=== PATIENT | male | born 1980 | race Caucasian/White ===

== ENCOUNTER 2016-09-27 23:28 | Inpatient (IN) | payer SELFPAY ==
[~2016-09-27] VITALS: Ht 175.3 cm; Wt 79.6 kg
[2016-09-27 23:56] LABS: BASOPHILS % (AUTO) 0.4 % (0.0-2.0); EOSINOPHILS % (AUTO) 1.8 % (1.0-6.0); HEMATOCRIT 45.4 % (41-53); HEMOGLOBIN 15.5 g/dL (13.5-17.5); LYMPHOCYTES # (AUTO) 1.9 K/uL (1.0-4.8); LYMPHOCYTES % (AUTO) 28.3 % (22.0-44.0); MEAN CORPUSCULAR HEMOGLOBIN 31.6 pg (26.0-34.0); MEAN CORPUSCULAR HGB CONC 34.1 G/dL (31.0-37.0); MEAN CORPUSCULAR VOLUME 93 fL (80-100); MONOCYTES # (AUTO) 0.4 K/uL (0.1-1.0); MONOCYTES % (AUTO) 6.2 % (2.0-9.0); NEUTROPHILS # (AUTO) 4.3 K/uL (1.8-7.7); NEUTROPHILS % (AUTO) 63.3 % (40.0-70.0); PLATELET COUNT (AUTO) 312 K/uL (150-450); RED CELL DISTRIBUTION WIDTH 14.4 % (11.5-14.5); WHITE BLOOD COUNT (AUTO) 6.9 K/uL (4.5-11.0)
[2016-09-28 00:05] LABS: ANION GAP 13 mmol/L (8-16); CARBON DIOXIDE 23 mmol/L (22-29); CHLORIDE 107 mmol/L (98-107); CREATININE 1.25 mg/dL (0.60-1.30); GLOMERULAR FILTR. RATE CALC > 60 mL/min (>60); POTASSIUM 3.9 mmol/L (3.5-5.1); SODIUM SERUM 143 mmol/L (136-145); UREA NITROGEN, BLOOD 11 mg/dL (7-18)
[2016-09-28 00:12] LABS: ALANINE AMINOTRANSFERASE 36 U/L (12-78); ALBUMIN 3.9 g/dL (3.4-5.0); ASPARTATE AMINOTRANSFERASE 63 U/L (15-37); BILIRUBIN,TOTAL 0.3 mg/dL (0.1-1.0); TOTAL PROTEIN, SERUM 7.5 g/dL (6.4-8.2)
[2016-09-28] MEDS ORDERED: HALOPERIDOL 5 MG TABLET PO PRN (04:30)
[2016-09-28] MEDS ORDERED: LORazepam 2 MG TABLET PO PRN (04:30)
[2016-09-28] MEDS ORDERED: ZOLPIDEM TARTRATE 10 MG TABLET PO PRN (04:30)
[2016-09-28 08:00] VITALS: BP 147/89
[2016-09-28 08:13] VITALS: BP 147/89
[2016-09-28 08:30] VITALS: BP 113/76
[2016-09-28 10:30] VITALS: BP 116/78
[2016-09-28] MEDS ORDERED: ACETAMINOPHEN 325 MG TABLET PO PRN (13:15)
[2016-09-28] MEDS ORDERED: IBUPROFEN 600 MG TABLET PO PRN (13:15)
[2016-09-28 16:24] VITALS: BP 109/67
== END 2016-09-28 18:45 | disposition home or self-care (01) | DRG 885 ==
LOC: EMS 23:30 → B2S 09-28 04:00
PROVIDERS: ADMIT Psychiatry & Neurology Child & Adolescent Psychiatry; ATTEND Psychiatry & Neurology Child & Adolescent Psychiatry
DX: F39 Unspecified mood [affective] disorder (principal); R45.851 Suicidal ideations; R45.850 Homicidal ideations; F10.129 Alcohol abuse with intoxication, unspecified; F12.90 Cannabis use, unspecified, uncomplicated; F29 Unspecified psychosis not due to a substance or known physiological condition; R79.89 Other specified abnormal findings of blood chemistry; R51 Headache; R45.87 Impulsiveness; Z59.0 Homelessness; Z72.89 Other problems related to lifestyle; Z71.41 Alcohol abuse counseling and surveillance of alcoholic; Y90.6 Blood alcohol level of 120-199 mg/100 ml
CPT/HCPCS: 99285; G0480

== ENCOUNTER 2018-05-11 19:39 | Inpatient (IN) | payer MEDICAID ==
[~2018-05-11] VITALS: Ht 175.3 cm; Wt 74.6 kg
[2018-05-11] MEDS ORDERED: DiphenhydrAMINE HCL 50 MG/ML VIAL ONE (20:54)
[2018-05-11] MEDS ORDERED: HALOPERIDOL LACTATE 5 MG/ML VIAL ONE (20:54)
[2018-05-11] MEDS ORDERED: LORazepam 2 MG/ML VIAL ONE (20:54)
[2018-05-11] MEDS ORDERED: DiphenhydrAMINE HCL 50 MG/ML VIAL IM ONE (21:00)
[2018-05-11] MEDS ORDERED: HALOPERIDOL LACTATE 5 MG/ML VIAL IM ONE (21:00)
[2018-05-11] MEDS ORDERED: LORazepam 2 MG/ML VIAL IM ONE (21:00)
[2018-05-11 22:32] LABS: BASOPHILS % (AUTO) 0.2 % (0.0-2.0); EOSINOPHILS % (AUTO) 0.8 % (1.0-6.0); HEMOGLOBIN 14.2 g/dL (13.5-17.5); LYMPHOCYTES # (AUTO) 1.4 K/uL (1.0-4.8); LYMPHOCYTES % (AUTO) 15.5 % (22.0-44.0); MEAN CORPUSCULAR HEMOGLOBIN 31.9 pg (26.0-34.0); MEAN CORPUSCULAR HGB CONC 34.7 G/dL (31.0-37.0); MEAN CORPUSCULAR VOLUME 92 fL (80-100); MONOCYTES # (AUTO) 0.7 K/uL (0.1-1.0); MONOCYTES % (AUTO) 7.8 % (2.0-9.0); NEUTROPHILS % (AUTO) 75.7 % (40.0-70.0); PLATELET COUNT (AUTO) 295 K/uL (150-450); RED BLOOD CELL COUNT(AUTO) 4.45 MIL/uL (4.50-5.90); RED CELL DISTRIBUTION WIDTH 13.8 % (11.5-14.5)
[2018-05-11 22:42] LABS: ANION GAP 13 mmol/L (8-16); CALCIUM, TOTAL 8.5 mg/dL (8.8-10.5); CARBON DIOXIDE 21 mmol/L (22-29); CHLORIDE 107 mmol/L (98-107); CREATININE 0.99 mg/dL (0.60-1.30); GLOMERULAR FILTR. RATE CALC > 60 mL/min (>60); GLUCOSE,RANDOM 95 mg/dL (70-110); POTASSIUM 3.5 mmol/L (3.5-5.1); SODIUM SERUM 141 mmol/L (136-145); UREA NITROGEN, BLOOD 12 mg/dL (7-18)
[2018-05-11 22:55] LABS: ALANINE AMINOTRANSFERASE 43 U/L (12-78); ALBUMIN 3.5 g/dL (3.4-5.0); ALKALINE PHOSPHATASE 61 U/L (46-116); ASPARTATE AMINOTRANSFERASE 53 U/L (15-37); BILIRUBIN,TOTAL 0.3 mg/dL (0.1-1.0); TOTAL PROTEIN, SERUM 6.9 g/dL (6.4-8.2)
[2018-05-11 23:08] LABS: AMPHET/METH SCREEN,URINE NEGATIVE (NEGATIVE); BARBITURATE SCREEN, URINE NEGATIVE (NEGATIVE); BENZODIAZEPINES SCREEN,URINE POSITIVE (NEGATIVE); CANNABINOID SCREEN,URINE NEGATIVE (NEGATIVE); COCAINE SCREEN,URINE NEGATIVE (NEGATIVE); METHADONE SCREEN, URINE NEGATIVE (NEGATIVE); OPIATE SCREEN,URINE NEGATIVE (NEGATIVE); PHENCYCLIDINE SCREEN,URINE NEGATIVE (NEGATIVE)
[2018-05-12] VITALS (7 sets, daily range): BP systolic 95–133; BP diastolic 59–72
[2018-05-12] MEDS ORDERED: LIDOCAINE 2%/EPI 1:200,000/PF 20 ML VIAL INJ ONE (00:15)
[2018-05-12] MEDS ORDERED: SODIUM CHLORIDE 0.9% 2,000 ML IV ONE (00:15)
[2018-05-12] MEDS ORDERED: ZOLPIDEM TARTRATE 10 MG TABLET PO PRN (04:00)
[2018-05-12] MEDS ORDERED: LORazepam 1 MG TABLET PO PRN (04:00)
[2018-05-12] MEDS: HALOPERIDOL 5 MG TABLET PO PRN (09:29)
[2018-05-12] MEDS ORDERED: ACETAMINOPHEN 325 MG TABLET PO PRN (09:45)
[2018-05-12] MEDS ORDERED: LORazepam 2 MG TABLET PO PRN (17:00)
[2018-05-12] MEDS: IBUPROFEN 600 MG TABLET PO PRN (17:10)
[2018-05-12] MEDS: OLANZapine 10 MG TABLET PO SCH (20:57)
[2018-05-13] MEDS ORDERED: LORazepam 2 MG TABLET PO PRN (07:00)
[2018-05-13 07:18] LABS: CHOL/HDL RATIO 2.3 (4.2-7.3)
[2018-05-13] MEDS: LORazepam 2 MG TABLET PO SCH ×4 (08:47→21:00)
[2018-05-13] MEDS: IBUPROFEN 600 MG TABLET PO PRN (08:50)
[2018-05-13] MEDS: OLANZapine 10 MG TABLET PO SCH (21:00)
[2018-05-14] MEDS: LORazepam 2 MG TABLET PO SCH ×4 (09:00→21:14)
[2018-05-14 09:36] VITALS: BP 116/62
[2018-05-14 09:37] VITALS: BP 116/62
[2018-05-14 13:00] VITALS: BP 116/80
[2018-05-14] MEDS: HALOPERIDOL 5 MG TABLET PO PRN (13:02)
[2018-05-14] MEDS: OLANZapine 10 MG TABLET PO SCH (21:14)
[2018-05-15] MEDS ORDERED: LORazepam 1 MG TABLET PO PRN (07:00)
[2018-05-15] MEDS: LORazepam 1 MG TABLET PO SCH ×4 (08:39→20:31)
[2018-05-15 08:44] VITALS: BP 105/69
[2018-05-15 09:38] VITALS: BP 105/69
[2018-05-15] MEDS ORDERED: BACITRACIN 28.4 GM OINTMENT TP PRN (10:15)
[2018-05-15 17:46] VITALS: BP 120/75
[2018-05-15 17:47] VITALS: BP 120/75
[2018-05-15] MEDS: OLANZapine 10 MG TABLET PO SCH (20:31)
[2018-05-16] MEDS ORDERED: LORazepam 1 MG TABLET PO PRN (07:00)
[2018-05-16 08:15] VITALS: BP 121/69
[2018-05-16] MEDS: OLANZapine 10 MG TABLET PO SCH (21:22)
[2018-05-16 21:29] VITALS: BP 120/68
[2018-05-17 05:01] VITALS: BP 111/63
[2018-05-17 09:05] VITALS: BP 106/66
[2018-05-17 17:45] VITALS: BP 113/64
[2018-05-17] MEDS: OLANZapine 10 MG TABLET PO SCH (20:27)
[2018-05-18 08:23] VITALS: BP 113/66
[2018-05-18 16:41] VITALS: BP 109/73
[2018-05-18] MEDS: OLANZapine 10 MG TABLET PO SCH (20:33)
[2018-05-18] MEDS: HALOPERIDOL 5 MG TABLET PO PRN (20:33)
[2018-05-19] MEDS ORDERED: OLAN10TA3 PO (15:19)
== END 2018-05-19 15:50 | disposition home or self-care (01) | DRG 750 ==
LOC: EMS 19:40 → 3EC 05-12 03:54 → B3A 05-16 19:30
PROVIDERS: ADMIT Psychiatry & Neurology Psychiatry; ATTEND Psychiatry & Neurology Psychiatry
PROC: 0HQGXZZ Repair Left Hand Skin, External Approach (ICD-10-PCS; principal; 2018-05-12)
DX: F25.0 Schizoaffective disorder, bipolar type (principal); Z78.1 Physical restraint status; F10.10 Alcohol abuse, uncomplicated; F13.10 Sedative, hypnotic or anxiolytic abuse, uncomplicated; Y90.9 Presence of alcohol in blood, level not specified; S51.812A Laceration without foreign body of left forearm, initial encounter; S61.512A Laceration without foreign body of left wrist, initial encounter; X78.1XXA Intentional self-harm by knife, initial encounter; Z87.891 Personal history of nicotine dependence; Z91.5 Personal history of self-harm; Y90.6 Blood alcohol level of 120-199 mg/100 ml; M54.2 Cervicalgia
CPT/HCPCS: 12002; 51701; 96372; G0480; J1200; J1630; J2060

== ENCOUNTER 2018-10-09 15:28 | Inpatient (IN) | payer MEDICAID ==
[~2018-10-09] VITALS: Ht 172.7 cm; Wt 78.9 kg
[~2018-10-09 15:28] MED LIST: OLAN10TA3 PO
[2018-10-09 17:34] VITALS: BP 122/65
[2018-10-09] MEDS ORDERED: MAG HYDROX/AL HYDROX/SIMETH ES 30 ML SUSPENSION UDCUP PO PRN (18:00)
[2018-10-09] MEDS ORDERED: ALBUTEROL SULFATE HFA 90 MCG/PUFF 8 GM INHALER IH PRN (18:00)
[2018-10-09] MEDS ORDERED: ONDANSETRON HCL 4 MG TABLET PO PRN (18:00)
[2018-10-09] MEDS ORDERED: IBUPROFEN 400 MG TABLET PO PRN (18:00)
[2018-10-09] MEDS ORDERED: ACETAMINOPHEN 325 MG TABLET PO PRN (18:00)
[2018-10-09] MEDS ORDERED: CloNIDine HCL 0.1 MG TABLET PO PRN (18:00)
[2018-10-09] MEDS ORDERED: NICOTINE 14 MG/24 HOUR PATCH TD PRN (18:00)
[2018-10-09] MEDS ORDERED: MAGNESIUM HYDROXIDE SUSPENSION 30 ML UDCUP PO PRN (18:00)
[2018-10-09] MEDS ORDERED: PETROLATUM,WHITE 28 GM JELLY TP PRN (18:00)
[2018-10-09] MEDS ORDERED: DOCUSATE SODIUM 100 MG CAPSULE PO PRN (18:00)
[2018-10-09] MEDS ORDERED: GuaiFENesin/D-METHORPHAN [SUGAR-FREE] 200-20MG/10 ML SYRUP UDCUP PO PRN (18:00)
[2018-10-09] MEDS ORDERED: LOPERAMIDE HCL 2 MG CAPSULE PO PRN (18:00)
[2018-10-09] MEDS: OLANZapine 10 MG TABLET PO SCH (21:21)
[2018-10-09] MEDS: LORazepam 2 MG TABLET PO PRN (21:21)
[2018-10-09] MEDS: HALOPERIDOL 5 MG TABLET PO PRN (21:21)
[2018-10-09] MEDS: ZOLPIDEM TARTRATE 10 MG TABLET PO PRN (21:53)
[2018-10-10 07:55] LABS: BASOPHILS % (AUTO) 0.7 % (0.0-2.0); HEMOGLOBIN 14.5 g/dL (13.5-17.5); LYMPHOCYTES # (AUTO) 2.3 K/uL (1.0-4.8); LYMPHOCYTES % (AUTO) 39.1 % (22.0-44.0); MEAN CORPUSCULAR HEMOGLOBIN 31.7 pg (26.0-34.0); MEAN CORPUSCULAR HGB CONC 33.9 G/dL (31.0-37.0); MEAN CORPUSCULAR VOLUME 94 fL (80-100); MONOCYTES # (AUTO) 0.6 K/uL (0.1-1.0); MONOCYTES % (AUTO) 10.3 % (2.0-9.0); NEUTROPHILS # (AUTO) 2.7 K/uL (1.8-7.7); NEUTROPHILS % (AUTO) 45.9 % (40.0-70.0); PLATELET COUNT (AUTO) 288 K/uL (150-450); RED BLOOD CELL COUNT(AUTO) 4.58 MIL/uL (4.50-5.90); RED CELL DISTRIBUTION WIDTH 14.2 % (11.5-14.5)
[2018-10-10 08:03] VITALS: BP 101/58
[2018-10-10 09:05] LABS: ALBUMIN 3.4 g/dL (3.4-5.0); BILIRUBIN,TOTAL 0.3 mg/dL (0.1-1.0); CHOL/HDL RATIO 2.3 (4.2-7.3); CREATININE 1.34 mg/dL (0.60-1.30); POTASSIUM 3.8 mmol/L (3.5-5.1); THYROID STIMULATING HORMONE 2.15 uIU/mL (0.36-3.74); TOTAL PROTEIN, SERUM 6.4 g/dL (6.4-8.2)
[2018-10-10] MEDS: LORazepam 2 MG TABLET PO PRN ×2 (12:58→18:32)
[2018-10-10 16:00] VITALS: BP 110/66
[2018-10-10] MEDS: OLANZapine 10 MG TABLET PO SCH (20:39)
[2018-10-11 06:50] VITALS: BP 101/59
[2018-10-11 08:34] VITALS: BP 109/70
[2018-10-11] MEDS ORDERED: SERTRALINE HCL 50 MG TABLET PO SCH (09:00)
[2018-10-11] MEDS: HALOPERIDOL 5 MG TABLET PO PRN ×2 (09:17→18:18)
[2018-10-11] MEDS: LORazepam 2 MG TABLET PO PRN ×2 (09:17→18:18)
[2018-10-11 16:43] VITALS: BP 109/67
[2018-10-11] MEDS: OLANZapine 10 MG TABLET PO SCH (20:50)
[2018-10-11] MEDS: ZOLPIDEM TARTRATE 10 MG TABLET PO PRN (20:51)
[2018-10-12] MEDS: HALOPERIDOL 5 MG TABLET PO PRN ×3 (03:49→15:40)
[2018-10-12] MEDS: LORazepam 2 MG TABLET PO PRN ×4 (03:49→20:45)
[2018-10-12 03:50] VITALS: BP 133/88
[2018-10-12 08:47] VITALS: BP 113/61
[2018-10-12] MEDS: SERTRALINE HCL 50 MG TABLET PO SCH (08:54)
[2018-10-12 08:58] VITALS: BP 113/61
[2018-10-12 16:00] VITALS: BP 108/67
[2018-10-12] MEDS: ZOLPIDEM TARTRATE 10 MG TABLET PO PRN (20:45)
[2018-10-12] MEDS: OLANZapine 10 MG TABLET PO SCH (20:45)
[2018-10-13 06:27] VITALS: BP 115/72
[2018-10-13 08:11] VITALS: BP 111/70
[2018-10-13] MEDS: SERTRALINE HCL 50 MG TABLET PO SCH (09:14)
[2018-10-13 16:00] VITALS: BP 122/73
[2018-10-13] MEDS: HALOPERIDOL 5 MG TABLET PO PRN (16:53)
[2018-10-13] MEDS: OLANZapine 10 MG TABLET PO SCH (20:43)
[2018-10-13] MEDS: LORazepam 0.5 MG TABLET PO PRN (22:04)
[2018-10-14 08:10] VITALS: BP 112/65
[2018-10-14] MEDS: SERTRALINE HCL 50 MG TABLET PO SCH (10:12)
[2018-10-14] MEDS: LORazepam 0.5 MG TABLET PO PRN ×2 (13:41→20:09)
[2018-10-14 16:00] VITALS: BP 112/69
[2018-10-14] MEDS: OLANZapine 10 MG TABLET PO SCH (20:09)
[2018-10-14] MEDS ORDERED: OMEPRAZOLE 20 MG CAPSULE PO SCH (21:00)
[2018-10-14] MEDS: ZOLPIDEM TARTRATE 10 MG TABLET PO PRN (23:39)
[2018-10-15] VITALS: BP 119/80
[2018-10-15] MEDS: HALOPERIDOL 5 MG TABLET PO PRN (00:10)
[2018-10-15 08:30] VITALS: BP 100/72
[2018-10-15] MEDS: SERTRALINE HCL 50 MG TABLET PO SCH (09:07)
[2018-10-15] MEDS ORDERED: OLAN10TA3 PO (11:55)
[2018-10-15] MEDS ORDERED: SERT100T12 PO (11:56)
== END 2018-10-15 13:25 | disposition home or self-care (01) | DRG 750 ==
LOC: B3A 17:33
PROVIDERS: ADMIT Psychiatry & Neurology Psychiatry; ATTEND Psychiatry & Neurology Psychiatry
DX: F25.0 Schizoaffective disorder, bipolar type (principal); I95.9 Hypotension, unspecified; I50.9 Heart failure, unspecified; Z91.19 Patient's noncompliance with other medical treatment and regimen; F10.10 Alcohol abuse, uncomplicated; K21.9 Gastro-esophageal reflux disease without esophagitis; F19.10 Other psychoactive substance abuse, uncomplicated; F41.9 Anxiety disorder, unspecified; Z71.41 Alcohol abuse counseling and surveillance of alcoholic; Z71.51 Drug abuse counseling and surveillance of drug abuser; Z79.899 Other long term (current) drug therapy; Z90.49 Acquired absence of other specified parts of digestive tract
CPT/HCPCS: 83036; 84436; 84439; 84443

== ENCOUNTER 2019-08-25 12:12 | Inpatient (IN) | payer MEDICAID ==
[~2019-08-25] VITALS: Ht 175.3 cm; Wt 81.6 kg
[~2019-08-25 12:12] MED LIST changes: +SERT100T12 PO
[2019-08-25 16:01] VITALS: BP 120/70
[2019-08-25 17:28] VITALS: BP 111/72
[2019-08-25] MEDS: HALOPERIDOL 5 MG TABLET PO PRN (18:17)
[2019-08-25] MEDS: LORazepam 2 MG TABLET PO PRN (18:17)
[2019-08-25] MEDS: ZOLPIDEM TARTRATE 10 MG TABLET PO PRN (20:55)
[2019-08-26 03:55] VITALS: BP 114/70
[2019-08-26 07:53] LABS: BASOPHILS % (AUTO) 0.4 % (0.0-2.0); EOSINOPHILS % (AUTO) 3.9 % (1.0-6.0); HEMATOCRIT 42.6 % (41-53); HEMOGLOBIN 14.3 g/dL (13.5-17.5); LYMPHOCYTES % (AUTO) 26.7 % (22.0-44.0); MEAN CORPUSCULAR HEMOGLOBIN 31.7 pg (26.0-34.0); MEAN CORPUSCULAR HGB CONC 33.6 G/dL (31.0-37.0); MEAN CORPUSCULAR VOLUME 94 fL (80-100); MONOCYTES # (AUTO) 0.7 K/uL (0.1-1.0); MONOCYTES % (AUTO) 9.3 % (2.0-9.0); NEUTROPHILS # (AUTO) 4.6 K/uL (1.8-7.7); NEUTROPHILS % (AUTO) 59.7 % (40.0-70.0); PLATELET COUNT (AUTO) 310 K/uL (150-450); RED BLOOD CELL COUNT(AUTO) 4.52 MIL/uL (4.50-5.90); RED CELL DISTRIBUTION WIDTH 14.1 % (11.5-14.5)
[2019-08-26 08:08] LABS: ALANINE AMINOTRANSFERASE 37 U/L (12-78); ALBUMIN 3.2 g/dL (3.4-5.0); ALKALINE PHOSPHATASE 71 U/L (46-116); ANION GAP 8 mmol/L (8-16); ASPARTATE AMINOTRANSFERASE 23 U/L (15-37); BILIRUBIN,TOTAL 0.2 mg/dL (0.1-1.0); CALCIUM, TOTAL 8.5 mg/dL (8.8-10.5); CARBON DIOXIDE 26 mmol/L (22-29); CHLORIDE 108 mmol/L (98-107); CHOL/HDL RATIO 3.8 (4.2-7.3); CHOLESTEROL 152 mg/dL (131-200); CREATININE 0.95 mg/dL (0.60-1.30); GLOMERULAR FILTR. RATE CALC > 60 mL/min (>60); GLUCOSE,RANDOM 88 mg/dL (70-110); HDL CHOLESTEROL 40 mg/dL (40-60); LDL CHOL (CALC.) 85 mg/dL (0-130); SODIUM SERUM 142 mmol/L (136-145); TOTAL PROTEIN, SERUM 6.9 g/dL (6.4-8.2); TRIGLYCERIDES 136 mg/dL (15-150); UREA NITROGEN, BLOOD 18 mg/dL (7-18)
[2019-08-26] MEDS ORDERED: GuaiFENesin/D-METHORPHAN [SUGAR-FREE] 200-20MG/10 ML SYRUP UDCUP PO PRN (08:15)
[2019-08-26] MEDS ORDERED: LOPERAMIDE HCL 2 MG CAPSULE PO PRN (08:15)
[2019-08-26] MEDS ORDERED: IBUPROFEN 400 MG TABLET PO PRN (08:15)
[2019-08-26] MEDS ORDERED: PETROLATUM,WHITE 28 GM JELLY TP PRN (08:15)
[2019-08-26] MEDS ORDERED: NICOTINE 14 MG/24 HOUR PATCH TD PRN (08:15)
[2019-08-26] MEDS ORDERED: ACETAMINOPHEN 325 MG TABLET PO PRN (08:15)
[2019-08-26] MEDS ORDERED: ONDANSETRON HCL 4 MG TABLET PO PRN (08:15)
[2019-08-26] MEDS ORDERED: ALBUTEROL SULFATE HFA 90 MCG/PUFF 8 GM INHALER IH PRN (08:15)
[2019-08-26] MEDS ORDERED: MAG HYDROX/AL HYDROX/SIMETH ES 30 ML SUSPENSION UDCUP PO PRN (08:15)
[2019-08-26] MEDS ORDERED: MAGNESIUM HYDROXIDE SUSPENSION 30 ML UDCUP PO PRN (08:15)
[2019-08-26] MEDS ORDERED: DOCUSATE SODIUM 100 MG CAPSULE PO PRN (08:15)
[2019-08-26] MEDS ORDERED: CloNIDine HCL 0.1 MG TABLET PO PRN (08:15)
[2019-08-26 08:26] VITALS: BP 114/63
[2019-08-26] MEDS: HALOPERIDOL 5 MG TABLET PO PRN (10:04)
[2019-08-26] MEDS: LORazepam 2 MG TABLET PO PRN (14:10)
[2019-08-26] MEDS: SERTRALINE HCL 100 MG TABLET PO SCH (15:58)
[2019-08-26 16:31] VITALS: BP 108/68
[2019-08-26] MEDS: OLANZapine 10 MG TABLET PO SCH (20:11)
[2019-08-27 00:05] VITALS: BP 100/74
[2019-08-27 08:13] VITALS: BP 102/62
[2019-08-27 08:22] LABS: BASOPHILS % (AUTO) 0.5 % (0.0-2.0); HEMATOCRIT 43.4 % (41-53); HEMOGLOBIN 14.9 g/dL (13.5-17.5); LYMPHOCYTES # (AUTO) 1.8 K/uL (1.0-4.8); LYMPHOCYTES % (AUTO) 28.9 % (22.0-44.0); MEAN CORPUSCULAR HEMOGLOBIN 32.2 pg (26.0-34.0); MEAN CORPUSCULAR HGB CONC 34.2 G/dL (31.0-37.0); MEAN CORPUSCULAR VOLUME 94 fL (80-100); MONOCYTES # (AUTO) 0.5 K/uL (0.1-1.0); MONOCYTES % (AUTO) 8.3 % (2.0-9.0); NEUTROPHILS # (AUTO) 3.7 K/uL (1.8-7.7); NEUTROPHILS % (AUTO) 57.3 % (40.0-70.0); PLATELET COUNT (AUTO) 308 K/uL (150-450); RED BLOOD CELL COUNT(AUTO) 4.62 MIL/uL (4.50-5.90)
[2019-08-27] MEDS: SERTRALINE HCL 100 MG TABLET PO SCH (08:33)
[2019-08-27] MEDS: LORazepam 2 MG TABLET PO PRN ×2 (09:45→17:51)
[2019-08-27] MEDS: HALOPERIDOL 5 MG TABLET PO PRN (17:07)
[2019-08-27 17:35] VITALS: BP 109/72
[2019-08-27] MEDS: OLANZapine 10 MG TABLET PO SCH (20:26)
[2019-08-27] MEDS: ZOLPIDEM TARTRATE 10 MG TABLET PO PRN (21:15)
[2019-08-28 00:26] VITALS: BP 129/84
[2019-08-28 08:24] VITALS: BP 121/71
[2019-08-28] MEDS: SERTRALINE HCL 100 MG TABLET PO SCH (09:37)
[2019-08-28] MEDS: HALOPERIDOL 5 MG TABLET PO PRN ×2 (12:26→16:57)
[2019-08-28 18:06] VITALS: BP 105/74
[2019-08-28] MEDS: OLANZapine 10 MG TABLET PO SCH (20:33)
[2019-08-29 00:30] VITALS: BP 125/78
[2019-08-29] MEDS: SERTRALINE HCL 100 MG TABLET PO SCH (08:28)
[2019-08-29 08:52] VITALS: BP 111/68
[2019-08-29 16:18] VITALS: BP 110/68
[2019-08-29] MEDS: OLANZapine 10 MG TABLET PO SCH (20:16)
[2019-08-29] MEDS: ZOLPIDEM TARTRATE 10 MG TABLET PO PRN (22:48)
[2019-08-30 00:54] VITALS: BP 118/67
[2019-08-30] MEDS: SERTRALINE HCL 100 MG TABLET PO SCH (08:26)
[2019-08-30 08:56] VITALS: BP 117/73
[2019-08-30 16:17] VITALS: BP 118/89
[2019-08-30] MEDS: OLANZapine 10 MG TABLET PO SCH (20:04)
[2019-08-31 00:26] VITALS: BP 123/74
[2019-08-31 08:52] VITALS: BP 126/77
[2019-08-31] MEDS: SERTRALINE HCL 100 MG TABLET PO SCH (09:30)
[2019-08-31 16:05] VITALS: BP 115/72
[2019-08-31] MEDS: OLANZapine 10 MG TABLET PO SCH (20:00)
[2019-08-31] MEDS: ZOLPIDEM TARTRATE 10 MG TABLET PO PRN (20:58)
[2019-09-01 05:21] VITALS: BP 106/64
[2019-09-01 08:11] VITALS: BP 103/77
[2019-09-01] MEDS: SERTRALINE HCL 100 MG TABLET PO SCH (09:05)
[2019-09-01 16:16] VITALS: BP 110/83
[2019-09-01] MEDS: OLANZapine 10 MG TABLET PO SCH (20:17)
[2019-09-01] MEDS: ZOLPIDEM TARTRATE 10 MG TABLET PO PRN (21:12)
[2019-09-02 00:29] VITALS: BP 112/78
[2019-09-02 08:13] VITALS: BP 108/71
[2019-09-02] MEDS: SERTRALINE HCL 100 MG TABLET PO SCH (08:42)
[2019-09-02] MEDS ORDERED: OLAN7.5T2 PO (16:57)
[2019-09-02] MEDS ORDERED: SERT50TA12 PO (16:57)
== END 2019-09-02 18:33 | disposition home or self-care (01) | DRG 885 ==
LOC: B2S 18:05
PROVIDERS: ADMIT Psychiatry & Neurology Child & Adolescent Psychiatry
DX: F25.1 Schizoaffective disorder, depressive type (principal); R45.851 Suicidal ideations; Z59.0 Homelessness; Z91.5 Personal history of self-harm; I50.9 Heart failure, unspecified; Z90.49 Acquired absence of other specified parts of digestive tract; F10.10 Alcohol abuse, uncomplicated; Y90.9 Presence of alcohol in blood, level not specified
CPT/HCPCS: 87081

== ENCOUNTER 2020-08-15 11:35 | Inpatient (IN) | payer MEDICAID, OTHER ==
[~2020-08-15] VITALS: Ht 170.2 cm; Wt 202.8 kg
[~2020-08-15 11:35] MED LIST changes: -OLAN10TA3 PO; +OLAN7.5T22 PO; +SERT-158 PO; -SERT100T12 PO
[2020-08-15] MEDS ORDERED: HALOPERIDOL 5 MG TABLET PO ONE (12:15)
[2020-08-15 12:23] LABS: BASOPHILS % (AUTO) 0.3 % (0.0-2.0); EOSINOPHILS % (AUTO) 0.7 % (1.0-6.0); HEMATOCRIT 50.9 % (41-53); HEMOGLOBIN 16.9 g/dL (13.5-17.5); LYMPHOCYTES # (AUTO) 1.4 K/uL (1.0-4.8); LYMPHOCYTES % (AUTO) 14.3 % (22.0-44.0); MEAN CORPUSCULAR HEMOGLOBIN 30.8 pg (26.0-34.0); MEAN CORPUSCULAR HGB CONC 33.3 G/dL (31.0-37.0); MEAN CORPUSCULAR VOLUME 93 fL (80-100); MONOCYTES % (AUTO) 10.4 % (2.0-9.0); NEUTROPHILS # (AUTO) 7.3 K/uL (1.8-7.7); NEUTROPHILS % (AUTO) 74.3 % (40.0-70.0); PLATELET COUNT (AUTO) 394 K/uL (150-450); RED CELL DISTRIBUTION WIDTH 14.6 % (11.5-14.5)
[2020-08-15 12:28] LABS: ANION GAP 18 mmol/L (8-16); CALCIUM, TOTAL 9.2 mg/dL (8.8-10.5); CARBON DIOXIDE 19 mmol/L (22-29); CHLORIDE 102 mmol/L (98-107); CREATININE 1.23 mg/dL (0.60-1.30); GLOMERULAR FILTR. RATE CALC > 60 mL/min (>60); GLUCOSE,RANDOM 75 mg/dL (70-110); POTASSIUM 4.1 mmol/L (3.5-5.1); SODIUM SERUM 139 mmol/L (136-145); UREA NITROGEN, BLOOD 18 mg/dL (7-18)
[2020-08-15 12:34] LABS: ALANINE AMINOTRANSFERASE 54 U/L (12-78); ALBUMIN 3.8 g/dL (3.4-5.0); ALKALINE PHOSPHATASE 101 U/L (46-116); ASPARTATE AMINOTRANSFERASE 78 U/L (15-37); BILIRUBIN,TOTAL 1.1 mg/dL (0.1-1.0); TOTAL PROTEIN, SERUM 8.3 g/dL (6.4-8.2)
[2020-08-15 13:53] LABS: AMPHET/METH SCREEN,URINE POSITIVE (NEGATIVE); BARBITURATE SCREEN, URINE NEGATIVE (NEGATIVE); BENZODIAZEPINES SCREEN,URINE NEGATIVE (NEGATIVE); CANNABINOID SCREEN,URINE NEGATIVE (NEGATIVE); COCAINE SCREEN,URINE NEGATIVE (NEGATIVE); METHADONE SCREEN, URINE NEGATIVE (NEGATIVE); OPIATE SCREEN,URINE NEGATIVE (NEGATIVE); PHENCYCLIDINE SCREEN,URINE NEGATIVE (NEGATIVE)
[2020-08-15 14:24] LABS: COVID AG,FIA SOURCE NASOPHARYNGEAL
[2020-08-15] MEDS ORDERED: OLANZapine 5 MG RAPDIS TABLET PO PRN (16:15)
[2020-08-15] MEDS ORDERED: GuaiFENesin/D-METHORPHAN [SUGAR-FREE] 200-20MG/10 ML SYRUP UDCUP PO PRN (16:15)
[2020-08-15] MEDS ORDERED: ACETAMINOPHEN 325 MG TABLET PO PRN (16:15)
[2020-08-15] MEDS ORDERED: MAGNESIUM HYDROXIDE SUSPENSION 30 ML UDCUP PO PRN (16:15)
[2020-08-15] MEDS ORDERED: TUBERCULIN, PURIFIED PROTEIN DERIVATIVE 5 TU/0.1 ML SYRINGE ID ONE (16:15)
[2020-08-15] MEDS ORDERED: LORazepam 2 MG TABLET PO PRN (16:15)
[2020-08-15] MEDS ORDERED: PROMETHAZINE HCL 25 MG TABLET PO PRN (16:15)
[2020-08-15] MEDS ORDERED: MAG HYDROX/AL HYDROX/SIMETH ES 30 ML SUSPENSION UDCUP PO PRN (16:15)
[2020-08-15] MEDS ORDERED: LOPERAMIDE HCL 2 MG CAPSULE PO PRN (16:15)
[2020-08-15] MEDS ORDERED: HydrOXYzine PAMOATE 50 MG CAPSULE PO PRN (16:15)
[2020-08-15] MEDS: THIAMINE 100 MG TABLET PO SCH (17:30)
[2020-08-15 18:43] VITALS: BP 127/83
[2020-08-15] MEDS: OLANZapine 5 MG RAPDIS TABLET PO SCH (21:42)
[2020-08-15] MEDS: MELATONIN 5 MG TABLET PO SCH (21:42)
[2020-08-16 06:43] LABS: CHOL/HDL RATIO 2.7 (4.2-7.3); FREE T4 (FREE THYROXINE) 1.43 ng/dL (0.76-1.46); THYROID STIMULATING HORMONE 0.64 uIU/mL (0.36-3.74)
[2020-08-16 06:44] LABS: HEMOGLOBIN A1C 5.6 % (3.8-5.6)
[2020-08-16 08:10] VITALS: BP 136/79
[2020-08-16] MEDS ORDERED: SERTRALINE HCL 50 MG TABLET PO SCH (09:00)
[2020-08-16] MEDS: FOLIC ACID 1 MG TABLET PO SCH (09:28)
[2020-08-16] MEDS: THIAMINE 100 MG TABLET PO SCH ×2 (09:28→16:10)
[2020-08-16] MEDS: NALTREXONE HCL 50 MG TABLET PO SCH (09:28)
[2020-08-16] MEDS: OMEGA-3/DHA/EPA/FISH OIL 1,000 MG CAPSULE PO SCH (09:28)
[2020-08-16] MEDS: MULTIVITAMINS WITH MINERALS, THERAPEUTIC TABLET PO SCH (09:29)
[2020-08-16] MEDS: BuPROPion HCL XL 150 MG ER TABLET PO SCH (09:29)
[2020-08-16 16:06] VITALS: BP 105/70
[2020-08-16] MEDS: OLANZapine 5 MG RAPDIS TABLET PO SCH (20:13)
[2020-08-16] MEDS: MELATONIN 5 MG TABLET PO SCH (20:13)
[2020-08-17 08:00] VITALS: BP 101/55
[2020-08-17] MEDS: FOLIC ACID 1 MG TABLET PO SCH (08:52)
[2020-08-17] MEDS: MULTIVITAMINS WITH MINERALS, THERAPEUTIC TABLET PO SCH (08:52)
[2020-08-17] MEDS: BuPROPion HCL XL 150 MG ER TABLET PO SCH (08:53)
[2020-08-17] MEDS: OMEGA-3/DHA/EPA/FISH OIL 1,000 MG CAPSULE PO SCH (08:53)
[2020-08-17] MEDS: THIAMINE 100 MG TABLET PO SCH ×2 (08:53→16:21)
[2020-08-17] MEDS: NALTREXONE HCL 50 MG TABLET PO SCH (08:53)
[2020-08-17] MEDS ORDERED: BuPROPion HCL XL 150 MG ER TABLET PO SCH (09:00)
[2020-08-17 16:29] VITALS: BP 110/78
[2020-08-17] MEDS: MELATONIN 5 MG TABLET PO SCH (20:00)
[2020-08-17] MEDS: OLANZapine 5 MG RAPDIS TABLET PO SCH (20:00)
[2020-08-18 08:09] VITALS: BP 90/60
[2020-08-18] MEDS: THIAMINE 100 MG TABLET PO SCH ×2 (08:31→16:09)
[2020-08-18] MEDS: OMEGA-3/DHA/EPA/FISH OIL 1,000 MG CAPSULE PO SCH (08:31)
[2020-08-18] MEDS: BuPROPion HCL XL 150 MG ER TABLET PO SCH (08:31)
[2020-08-18] MEDS: MULTIVITAMINS WITH MINERALS, THERAPEUTIC TABLET PO SCH (08:31)
[2020-08-18] MEDS: FOLIC ACID 1 MG TABLET PO SCH (08:31)
[2020-08-18] MEDS: NALTREXONE HCL 50 MG TABLET PO SCH (08:31)
[2020-08-18 16:00] VITALS: BP 94/65
[2020-08-18] MEDS: OLANZapine 5 MG RAPDIS TABLET PO SCH (20:03)
[2020-08-18] MEDS: MELATONIN 5 MG TABLET PO SCH (20:03)
[2020-08-19] MEDS: THIAMINE 100 MG TABLET PO SCH ×2 (08:29→16:11)
[2020-08-19] MEDS: OMEGA-3/DHA/EPA/FISH OIL 1,000 MG CAPSULE PO SCH (08:30)
[2020-08-19] MEDS: BuPROPion HCL XL 150 MG ER TABLET PO SCH (08:30)
[2020-08-19] MEDS: NALTREXONE HCL 50 MG TABLET PO SCH (08:30)
[2020-08-19] MEDS: FOLIC ACID 1 MG TABLET PO SCH (08:30)
[2020-08-19] MEDS: MULTIVITAMINS WITH MINERALS, THERAPEUTIC TABLET PO SCH (08:30)
[2020-08-19 09:34] VITALS: BP 97/58
[2020-08-19 16:00] VITALS: BP 113/75
[2020-08-19 16:28] VITALS: BP 113/75
[2020-08-19] MEDS: OLANZapine 10 MG RAPDIS TABLET PO SCH (20:49)
[2020-08-19] MEDS: MELATONIN 5 MG TABLET PO SCH (20:49)
[2020-08-20] MEDS: BuPROPion HCL XL 150 MG ER TABLET PO SCH (08:35)
[2020-08-20] MEDS: FOLIC ACID 1 MG TABLET PO SCH (08:35)
[2020-08-20] MEDS: OMEGA-3/DHA/EPA/FISH OIL 1,000 MG CAPSULE PO SCH (08:35)
[2020-08-20] MEDS: MULTIVITAMINS WITH MINERALS, THERAPEUTIC TABLET PO SCH (08:35)
[2020-08-20] MEDS: THIAMINE 100 MG TABLET PO SCH ×2 (08:35→17:48)
[2020-08-20] MEDS: NALTREXONE HCL 50 MG TABLET PO SCH (08:35)
[2020-08-20 08:45] VITALS: BP 106/75
[2020-08-20 16:40] VITALS: BP 124/77
[2020-08-20] MEDS: MELATONIN 5 MG TABLET PO SCH (20:14)
[2020-08-20] MEDS: OLANZapine 10 MG RAPDIS TABLET PO SCH (20:14)
[2020-08-20] MEDS: ZOLPIDEM TARTRATE 10 MG TABLET PO PRN (21:23)
[2020-08-21] MEDS: NALTREXONE HCL 50 MG TABLET PO SCH (08:02)
[2020-08-21] MEDS: MULTIVITAMINS WITH MINERALS, THERAPEUTIC TABLET PO SCH (08:02)
[2020-08-21] MEDS: FOLIC ACID 1 MG TABLET PO SCH (08:03)
[2020-08-21] MEDS: BuPROPion HCL XL 150 MG ER TABLET PO SCH (08:03)
[2020-08-21] MEDS: OMEGA-3/DHA/EPA/FISH OIL 1,000 MG CAPSULE PO SCH (08:03)
[2020-08-21] MEDS: THIAMINE 100 MG TABLET PO SCH ×2 (08:03→16:11)
[2020-08-21 09:09] VITALS: BP 108/74
[2020-08-21 14:17] LABS: COVID AG,FIA SOURCE NASOPHARYNGEAL
[2020-08-21 16:04] VITALS: BP 107/80
[2020-08-21] MEDS: MELATONIN 5 MG TABLET PO SCH (20:51)
[2020-08-21] MEDS: OLANZapine 10 MG RAPDIS TABLET PO SCH (20:51)
[2020-08-21] MEDS: ZOLPIDEM TARTRATE 10 MG TABLET PO PRN (22:01)
[2020-08-22 08:24] VITALS: BP 110/74
[2020-08-22] MEDS: NALTREXONE HCL 50 MG TABLET PO SCH (09:29)
[2020-08-22] MEDS: OMEGA-3/DHA/EPA/FISH OIL 1,000 MG CAPSULE PO SCH (09:29)
[2020-08-22] MEDS: THIAMINE 100 MG TABLET PO SCH ×2 (09:29→16:02)
[2020-08-22] MEDS: MULTIVITAMINS WITH MINERALS, THERAPEUTIC TABLET PO SCH (09:29)
[2020-08-22] MEDS: FOLIC ACID 1 MG TABLET PO SCH (09:29)
[2020-08-22] MEDS: BuPROPion HCL XL 150 MG ER TABLET PO SCH (09:29)
[2020-08-22 16:00] VITALS: BP 110/73
[2020-08-22] MEDS: MELATONIN 5 MG TABLET PO SCH (20:08)
[2020-08-22] MEDS: OLANZapine 10 MG RAPDIS TABLET PO SCH (20:08)
[2020-08-22] MEDS: ZOLPIDEM TARTRATE 10 MG TABLET PO PRN (21:25)
[2020-08-23] MEDS: OMEGA-3/DHA/EPA/FISH OIL 1,000 MG CAPSULE PO SCH (08:31)
[2020-08-23] MEDS: MULTIVITAMINS WITH MINERALS, THERAPEUTIC TABLET PO SCH (08:32)
[2020-08-23] MEDS: FOLIC ACID 1 MG TABLET PO SCH (08:32)
[2020-08-23] MEDS: THIAMINE 100 MG TABLET PO SCH ×2 (08:32→16:08)
[2020-08-23] MEDS: NALTREXONE HCL 50 MG TABLET PO SCH (08:32)
[2020-08-23] MEDS: BuPROPion HCL XL 150 MG ER TABLET PO SCH (08:32)
[2020-08-23 08:40] VITALS: BP 96/67
[2020-08-23 16:00] VITALS: BP 105/62
[2020-08-23] MEDS: MELATONIN 5 MG TABLET PO SCH (20:05)
[2020-08-23] MEDS: OLANZapine 10 MG RAPDIS TABLET PO SCH (20:05)
[2020-08-23] MEDS: ZOLPIDEM TARTRATE 10 MG TABLET PO PRN (21:16)
[2020-08-24 08:59] VITALS: BP 121/73
[2020-08-24] MEDS: FOLIC ACID 1 MG TABLET PO SCH (10:32)
[2020-08-24] MEDS: OMEGA-3/DHA/EPA/FISH OIL 1,000 MG CAPSULE PO SCH (10:32)
[2020-08-24] MEDS: MULTIVITAMINS WITH MINERALS, THERAPEUTIC TABLET PO SCH (10:32)
[2020-08-24] MEDS: NALTREXONE HCL 50 MG TABLET PO SCH (10:33)
[2020-08-24] MEDS: BuPROPion HCL XL 150 MG ER TABLET PO SCH (10:33)
[2020-08-24] MEDS: THIAMINE 100 MG TABLET PO SCH ×2 (10:34→16:08)
[2020-08-24 16:14] VITALS: BP 123/76
[2020-08-24] MEDS: TERBINAFINE HCL 1% 30 GM CREAM TP SCH (19:11)
[2020-08-24] MEDS: TERBINAFINE HCL 250 MG TABLET PO SCH (19:12)
[2020-08-24] MEDS: MELATONIN 5 MG TABLET PO SCH (20:12)
[2020-08-24] MEDS: OLANZapine 10 MG RAPDIS TABLET PO SCH (20:12)
[2020-08-24] MEDS: ZOLPIDEM TARTRATE 10 MG TABLET PO PRN (22:08)
[2020-08-25] MEDS: MULTIVITAMINS WITH MINERALS, THERAPEUTIC TABLET PO SCH (08:24)
[2020-08-25] MEDS: BuPROPion HCL XL 150 MG ER TABLET PO SCH (08:24)
[2020-08-25] MEDS: TERBINAFINE HCL 250 MG TABLET PO SCH (08:24)
[2020-08-25] MEDS: THIAMINE 100 MG TABLET PO SCH (08:24)
[2020-08-25] MEDS: FOLIC ACID 1 MG TABLET PO SCH (08:24)
[2020-08-25] MEDS: OMEGA-3/DHA/EPA/FISH OIL 1,000 MG CAPSULE PO SCH (08:24)
[2020-08-25] MEDS: NALTREXONE HCL 50 MG TABLET PO SCH (08:24)
[2020-08-25 08:32] VITALS: BP 107/78
[2020-08-25] MEDS: TERBINAFINE HCL 1% 30 GM CREAM TP SCH ×2 (08:56→16:16)
[2020-08-25 16:22] VITALS: BP 120/74
[2020-08-25] MEDS: MELATONIN 5 MG TABLET PO SCH (20:20)
[2020-08-25] MEDS: OLANZapine 10 MG RAPDIS TABLET PO SCH (20:20)
[2020-08-25] MEDS: ZOLPIDEM TARTRATE 10 MG TABLET PO PRN (22:35)
[2020-08-26] MEDS: TERBINAFINE HCL 250 MG TABLET PO SCH (08:34)
[2020-08-26] MEDS: BuPROPion HCL XL 150 MG ER TABLET PO SCH (08:35)
[2020-08-26] MEDS: NALTREXONE HCL 50 MG TABLET PO SCH (08:35)
[2020-08-26] MEDS: OMEGA-3/DHA/EPA/FISH OIL 1,000 MG CAPSULE PO SCH (08:35)
[2020-08-26] MEDS: MULTIVITAMINS WITH MINERALS, THERAPEUTIC TABLET PO SCH (08:35)
[2020-08-26] MEDS: TERBINAFINE HCL 1% 30 GM CREAM TP SCH ×2 (08:36→16:16)
[2020-08-26 08:42] VITALS: BP 107/70
[2020-08-26 16:20] VITALS: BP 102/74
[2020-08-26] MEDS: MELATONIN 5 MG TABLET PO SCH (20:09)
[2020-08-26] MEDS: OLANZapine 10 MG RAPDIS TABLET PO SCH (20:09)
[2020-08-26] MEDS: ZOLPIDEM TARTRATE 10 MG TABLET PO PRN (21:39)
[2020-08-27 08:00] VITALS: BP 93/55
[2020-08-27] MEDS: OMEGA-3/DHA/EPA/FISH OIL 1,000 MG CAPSULE PO SCH (10:07)
[2020-08-27] MEDS: MULTIVITAMINS WITH MINERALS, THERAPEUTIC TABLET PO SCH (10:07)
[2020-08-27] MEDS: NALTREXONE HCL 50 MG TABLET PO SCH (10:07)
[2020-08-27] MEDS: BuPROPion HCL XL 150 MG ER TABLET PO SCH (10:07)
[2020-08-27] MEDS: TERBINAFINE HCL 1% 30 GM CREAM TP SCH ×2 (10:08→16:00)
[2020-08-27] MEDS: TERBINAFINE HCL 250 MG TABLET PO SCH (10:09)
[2020-08-27 16:04] VITALS: BP 91/61
[2020-08-27] MEDS: MELATONIN 5 MG TABLET PO SCH (20:04)
[2020-08-27] MEDS: OLANZapine 10 MG RAPDIS TABLET PO SCH (20:04)
[2020-08-27] MEDS: ZOLPIDEM TARTRATE 10 MG TABLET PO PRN (21:00)
[2020-08-28 08:24] VITALS: BP 96/76
[2020-08-28] MEDS: TERBINAFINE HCL 1% 30 GM CREAM TP SCH ×2 (09:01→16:35)
[2020-08-28] MEDS: NALTREXONE HCL 50 MG TABLET PO SCH (09:02)
[2020-08-28] MEDS: MULTIVITAMINS WITH MINERALS, THERAPEUTIC TABLET PO SCH (09:02)
[2020-08-28] MEDS: BuPROPion HCL XL 150 MG ER TABLET PO SCH (09:02)
[2020-08-28] MEDS: OMEGA-3/DHA/EPA/FISH OIL 1,000 MG CAPSULE PO SCH (09:02)
[2020-08-28] MEDS: TERBINAFINE HCL 250 MG TABLET PO SCH (09:04)
[2020-08-28 16:04] VITALS: BP 101/71
[2020-08-28 16:08] LABS: COVID AG,FIA SOURCE NASOPHARYNGEAL
[2020-08-28] MEDS: MELATONIN 5 MG TABLET PO SCH (20:04)
[2020-08-28] MEDS: OLANZapine 10 MG RAPDIS TABLET PO SCH (20:04)
[2020-08-28] MEDS: ZOLPIDEM TARTRATE 10 MG TABLET PO PRN (22:13)
[2020-08-29] MEDS: BuPROPion HCL XL 150 MG ER TABLET PO SCH (08:20)
[2020-08-29] MEDS: NALTREXONE HCL 50 MG TABLET PO SCH (08:20)
[2020-08-29] MEDS: OMEGA-3/DHA/EPA/FISH OIL 1,000 MG CAPSULE PO SCH (08:20)
[2020-08-29] MEDS: TERBINAFINE HCL 250 MG TABLET PO SCH (08:20)
[2020-08-29] MEDS: MULTIVITAMINS WITH MINERALS, THERAPEUTIC TABLET PO SCH (08:20)
[2020-08-29 09:48] VITALS: BP 83/50
[2020-08-29] MEDS: TERBINAFINE HCL 1% 30 GM CREAM TP SCH ×2 (11:34→16:30)
[2020-08-29 16:41] VITALS: BP 100/62
[2020-08-29] MEDS ORDERED: BUPR-49 PO (18:52)
[2020-08-29] MEDS ORDERED: OLAN10TA26 PO (18:52)
[2020-08-29] MEDS ORDERED: MELA5TAB3 PO (18:52)
[2020-08-29] MEDS ORDERED: NALT50TA PO (18:52)
[2020-08-29] MEDS ORDERED: OMEG-135 PO (18:52)
[2020-08-29] MEDS: OLANZapine 10 MG RAPDIS TABLET PO SCH (20:10)
[2020-08-29] MEDS: MELATONIN 5 MG TABLET PO SCH (20:10)
[2020-08-29] MEDS: ZOLPIDEM TARTRATE 10 MG TABLET PO PRN (21:07)
[2020-08-30] MEDS: BuPROPion HCL XL 150 MG ER TABLET PO SCH (09:04)
[2020-08-30] MEDS: TERBINAFINE HCL 250 MG TABLET PO SCH (09:04)
[2020-08-30] MEDS: MULTIVITAMINS WITH MINERALS, THERAPEUTIC TABLET PO SCH (09:04)
[2020-08-30] MEDS: NALTREXONE HCL 50 MG TABLET PO SCH (09:04)
[2020-08-30] MEDS: OMEGA-3/DHA/EPA/FISH OIL 1,000 MG CAPSULE PO SCH (09:04)
[2020-08-30] MEDS: TERBINAFINE HCL 1% 30 GM CREAM TP SCH (09:05)
[2020-08-30] MEDS ORDERED: TERB250 PO (09:11)
== END 2020-08-30 10:10 | disposition home or self-care (01) | DRG 750 ==
LOC: EMS 11:39 → 3EI 16:06
PROVIDERS: ADMIT Psychiatry & Neurology Psychiatry; ATTEND Psychiatry & Neurology Psychiatry
DX: F25.0 Schizoaffective disorder, bipolar type (principal); I50.9 Heart failure, unspecified; R45.851 Suicidal ideations; F03.90 Unspecified dementia, unspecified severity, without behavioral disturbance, psychotic disturbance, mood disturbance, and anxiety; F15.10 Other stimulant abuse, uncomplicated; F60.0 Paranoid personality disorder; R63.1 Polydipsia; Z20.822 Contact with and (suspected) exposure to COVID-19; Z65.3 Problems related to other legal circumstances; Z90.49 Acquired absence of other specified parts of digestive tract; Z79.899 Other long term (current) drug therapy
CPT/HCPCS: 80053; 80061; 83036; 84439; 84443; 85025; 86592; 93005; 99285; A9575; G0480

== ENCOUNTER 2020-10-04 16:59 | Inpatient (IN) | payer MEDICAID ==
[~2020-10-04] VITALS: Ht 175.3 cm; Wt 96.6 kg
[~2020-10-04 16:59] MED LIST changes: +BUPR-49 PO; +MELA5TAB3 PO; +NALT50TA PO; +OLAN10TA26 PO; -OLAN7.5T22 PO; +OMEG-135 PO; -SERT-158 PO; +TERB250 PO
[2020-10-04] MEDS ORDERED: HALOPERIDOL 5 MG TABLET PO PRN (18:00)
[2020-10-04] MEDS ORDERED: ZOLPIDEM TARTRATE 10 MG TABLET PO PRN (18:00)
[2020-10-04 18:20] LABS: GLUCOMETER DEV NAME(LOC) POC.BV
[2020-10-05 05:21] VITALS: BP 140/82
[2020-10-05] MEDS: LORazepam 2 MG TABLET PO PRN ×2 (08:25→20:24)
[2020-10-05] MEDS ORDERED: MAGNESIUM HYDROXIDE SUSPENSION 30 ML UDCUP PO PRN (08:30)
[2020-10-05] MEDS ORDERED: IBUPROFEN 400 MG TABLET PO PRN (08:30)
[2020-10-05] MEDS ORDERED: PETROLATUM,WHITE 28 GM JELLY TP PRN (08:30)
[2020-10-05] MEDS ORDERED: LOPERAMIDE HCL 2 MG CAPSULE PO PRN (08:30)
[2020-10-05] MEDS ORDERED: ONDANSETRON HCL 4 MG TABLET PO PRN (08:30)
[2020-10-05] MEDS ORDERED: CloNIDine HCL 0.1 MG TABLET PO PRN (08:30)
[2020-10-05] MEDS ORDERED: NICOTINE 14 MG/24 HOUR PATCH TD PRN (08:30)
[2020-10-05] MEDS ORDERED: DOCUSATE SODIUM 100 MG CAPSULE PO PRN (08:30)
[2020-10-05] MEDS ORDERED: MAG HYDROX/AL HYDROX/SIMETH ES 30 ML SUSPENSION UDCUP PO PRN (08:30)
[2020-10-05] MEDS ORDERED: ACETAMINOPHEN 325 MG TABLET PO PRN (08:30)
[2020-10-05] MEDS ORDERED: ALBUTEROL SULFATE HFA 90 MCG/PUFF 8 GM INHALER IH PRN (08:30)
[2020-10-05] MEDS ORDERED: GuaiFENesin/D-METHORPHAN [SUGAR-FREE] 200-20MG/10 ML SYRUP UDCUP PO PRN (08:30)
[2020-10-05] MEDS: OMEGA-3/DHA/EPA/FISH OIL 1,000 MG CAPSULE PO SCH (10:47)
[2020-10-05 12:39] VITALS: BP 142/96
[2020-10-05 16:17] VITALS: BP 121/74
[2020-10-05] MEDS: MELATONIN 5 MG TABLET PO SCH (20:24)
[2020-10-05] MEDS: OLANZapine 10 MG RAPDIS TABLET PO SCH (20:24)
[2020-10-06 01:26] VITALS: BP 132/75
[2020-10-06] MEDS: OMEGA-3/DHA/EPA/FISH OIL 1,000 MG CAPSULE PO SCH (08:38)
[2020-10-06] MEDS: LORazepam 2 MG TABLET PO PRN ×2 (11:42→18:44)
[2020-10-06 16:19] VITALS: BP 130/70
[2020-10-06] MEDS: OLANZapine 10 MG RAPDIS TABLET PO SCH (20:04)
[2020-10-06] MEDS: MELATONIN 5 MG TABLET PO SCH (20:04)
[2020-10-07 01:15] VITALS: BP 132/69
[2020-10-07] MEDS: LORazepam 2 MG TABLET PO PRN ×2 (08:30→14:08)
[2020-10-07 08:31] VITALS: BP 103/73
[2020-10-07] MEDS: OMEGA-3/DHA/EPA/FISH OIL 1,000 MG CAPSULE PO SCH (09:11)
[2020-10-07] MEDS ORDERED: OLAN10TA26 PO (09:52)
[2020-10-07] MEDS ORDERED: MELA5TAB3 PO (09:52)
== END 2020-10-07 15:30 | disposition home or self-care (01) | DRG 750 ==
LOC: B2S 18:18
DX: F25.1 Schizoaffective disorder, depressive type (principal); R45.851 Suicidal ideations; I50.9 Heart failure, unspecified; F12.10 Cannabis abuse, uncomplicated; F15.10 Other stimulant abuse, uncomplicated; Z20.822 Contact with and (suspected) exposure to COVID-19; R10.13 Epigastric pain
CPT/HCPCS: A9575; Q9967; Z7610

== ENCOUNTER 2020-10-28 13:58 | Emergency (ER) | payer MEDICAID, OTHER ==
[~2020-10-28] VITALS: Ht 170.2 cm; Wt 92.7 kg
[~2020-10-28 13:58] MED LIST changes: -BUPR-49 PO; -MELA5TAB3 PO; +MELA5TAB40 PO; -NALT50TA PO; -TERB250 PO
[2020-10-28 15:58] LABS: BASOPHILS % (AUTO) 0.4 % (0.0-2.0); EOSINOPHILS % (AUTO) 0.3 % (1.0-6.0); HEMATOCRIT 52.1 % (41-53); HEMOGLOBIN 17.2 g/dL (13.5-17.5); LYMPHOCYTES # (AUTO) 1.9 K/uL (1.0-4.8); LYMPHOCYTES % (AUTO) 15.9 % (22.0-44.0); MEAN CORPUSCULAR HEMOGLOBIN 31.4 pg (26.0-34.0); MEAN CORPUSCULAR VOLUME 95 fL (80-100); MONOCYTES # (AUTO) 1.2 K/uL (0.1-1.0); MONOCYTES % (AUTO) 10.4 % (2.0-9.0); NEUTROPHILS # (AUTO) 8.7 K/uL (1.8-7.7); PLATELET COUNT (AUTO) 322 K/uL (150-450); RED BLOOD CELL COUNT(AUTO) 5.49 MIL/uL (4.50-5.90); RED CELL DISTRIBUTION WIDTH 14.5 % (11.5-14.5)
[2020-10-28 16:11] LABS: ANION GAP 14 mmol/L (8-16); CALCIUM, TOTAL 9.1 mg/dL (8.8-10.5); CARBON DIOXIDE 21 mmol/L (22-29); CHLORIDE 105 mmol/L (98-107); CREATININE 1.29 mg/dL (0.60-1.30); GLOMERULAR FILTR. RATE CALC > 60 mL/min (>60); GLUCOSE,RANDOM 118 mg/dL (70-110); POTASSIUM 3.7 mmol/L (3.5-5.1); SODIUM SERUM 140 mmol/L (136-145); UREA NITROGEN, BLOOD 20 mg/dL (7-18)
[2020-10-28 16:15] LABS: ALANINE AMINOTRANSFERASE 90 U/L (12-78); ALBUMIN 3.6 g/dL (3.4-5.0); ALKALINE PHOSPHATASE 88 U/L (46-116); ASPARTATE AMINOTRANSFERASE 137 U/L (15-37); BILIRUBIN,TOTAL 1.3 mg/dL (0.1-1.0); TOTAL PROTEIN, SERUM 8.6 g/dL (6.4-8.2)
[2020-10-28] MEDS ORDERED: LORazepam 1 MG TABLET PO ONE (18:00)
[2020-10-28] MEDS ORDERED: HALOPERIDOL 5 MG TABLET PO ONE (18:00)
[2020-10-28] MEDS ORDERED: DiphenhydrAMINE HCL 25 MG CAPSULE PO ONE (18:00)
[2020-10-28 20:03] VITALS: BP 133/92
== END 2020-10-28 20:18 | disposition home or self-care (01) ==
LOC: EMS 14:09
DX: F25.9 Schizoaffective disorder, unspecified (principal); F15.10 Other stimulant abuse, uncomplicated
CPT/HCPCS: 36415; 80053; 85025; 99284; G0480

== ENCOUNTER 2021-01-06 17:09 | Emergency (ER) | payer MEDICAID, OTHER ==
[~2021-01-06] VITALS: Ht 170.2 cm; Wt 81.8 kg
[2021-01-06 17:30] VITALS: BP 144/94
[2021-01-06 20:21] LABS: COVID AG,FIA SOURCE NASOPHARYNGEAL
== END 2021-01-06 21:15 | disposition home or self-care (01) ==
LOC: EMS 17:31
DX: F20.9 Schizophrenia, unspecified (principal); F31.9 Bipolar disorder, unspecified; F15.90 Other stimulant use, unspecified, uncomplicated; Z79.899 Other long term (current) drug therapy; Z59.00 Homelessness unspecified; Z20.822 Contact with and (suspected) exposure to COVID-19
CPT/HCPCS: 99283; 99284

== ENCOUNTER 2021-03-20 16:09 | Outpatient (CLI) | payer OTHER ==
[~2021-03-20 16:09] MED LIST changes: +OMEG-108 PO; -OMEG-135 PO
[2021-03-20 17:27] VITALS: BP 119/85
[2021-03-20 17:36] LABS: GLUCOMETER DEV NAME(LOC) POC.BV
[2021-03-20] MEDS ORDERED: TraZODone HCL 50 MG TABLET PO PRN (17:45)
[2021-03-20] MEDS ORDERED: ACETAMINOPHEN 650 MG/20.3 ML SOLUTION UDCUP PO ONE (18:15)
[2021-03-20] MEDS ORDERED: ACETAMINOPHEN 325 MG TABLET PO ONE (18:15)
[2021-03-20 18:21] VITALS: BP 119/85
[2021-03-20 20:00] VITALS: BP 128/81
[2021-03-20] MEDS ORDERED: OLANZapine 7.5 MG TABLET PO SCH (21:00)
[2021-03-20] MEDS: SERTRALINE HCL 100 MG TABLET PO SCH (21:09)
[2021-03-21] MEDS: SERTRALINE HCL 100 MG TABLET PO SCH (08:11)
[2021-03-21 08:15] VITALS: BP 108/71
[2021-03-21] MEDS ORDERED: GABAPENTIN 300 MG CAPSULE PO SCH (09:00)
== END 2021-03-21 11:40 | disposition home or self-care (01) ==
LOC: CSU 16:09
PROVIDERS: ATTEND Psychiatry & Neurology Psychiatry
DX: F29 Unspecified psychosis not due to a substance or known physiological condition (principal)
CPT/HCPCS: 90792; Z7610

== ENCOUNTER 2021-08-25 07:43 | Emergency (ER) | payer OTHER ==
[~2021-08-25] VITALS: Ht 170.2 cm; Wt 79.5 kg
[2021-08-25] MEDS ORDERED: ACETAMINOPHEN 500 MG TABLET PO ONE (08:15)
[2021-08-25] MEDS ORDERED: OLANZapine 5 MG TABLET PO ONE (08:15)
[2021-08-25] MEDS ORDERED: IBUPROFEN 600 MG TABLET PO ONE (08:15)
[2021-08-25] MEDS ORDERED: LORazepam 1 MG TABLET PO ONE (08:15)
[2021-08-25 08:30] LABS: COVID AG,FIA SOURCE NASOPHARYNGEAL
[2021-08-25 08:32] LABS: BASOPHILS % (AUTO) 0.6 % (0.0-2.0); EOSINOPHILS % (AUTO) 0.7 % (1.0-6.0); HEMATOCRIT 44.4 % (41-53); HEMOGLOBIN 14.9 g/dL (13.5-17.5); LYMPHOCYTES # (AUTO) 1.4 K/uL (1.0-4.8); LYMPHOCYTES % (AUTO) 14.5 % (22.0-44.0); MEAN CORPUSCULAR HEMOGLOBIN 30.8 pg (26.0-34.0); MEAN CORPUSCULAR HGB CONC 33.6 G/dL (31.0-37.0); MEAN CORPUSCULAR VOLUME 92 fL (80-100); MONOCYTES % (AUTO) 10.3 % (2.0-9.0); NEUTROPHILS # (AUTO) 7.4 K/uL (1.8-7.7); NEUTROPHILS % (AUTO) 73.9 % (40.0-70.0); PLATELET COUNT (AUTO) 345 K/uL (150-450); RED BLOOD CELL COUNT(AUTO) 4.84 MIL/uL (4.50-5.90); RED CELL DISTRIBUTION WIDTH 14.7 % (11.5-14.5)
[2021-08-25 08:41] LABS: ANION GAP 6 mmol/L (8-16); CARBON DIOXIDE 28 mmol/L (22-29); CHLORIDE 104 mmol/L (98-107); CREATININE 1.01 mg/dL (0.60-1.30); GLOMERULAR FILTR. RATE CALC > 60 mL/min (>60); GLUCOSE,RANDOM 95 mg/dL (70-110); POTASSIUM 3.5 mmol/L (3.5-5.1); SODIUM SERUM 138 mmol/L (136-145); UREA NITROGEN, BLOOD 16 mg/dL (7-18)
[2021-08-25 08:43] LABS: ALBUMIN 3.6 g/dL (3.4-5.0)
[2021-08-25 09:01] LABS: ALANINE AMINOTRANSFERASE 26 U/L (12-78); ALKALINE PHOSPHATASE 87 U/L (46-116); ASPARTATE AMINOTRANSFERASE 21 U/L (15-37); BILIRUBIN,TOTAL 0.8 mg/dL (0.1-1.0); TOTAL PROTEIN, SERUM 7.3 g/dL (6.4-8.2)
[2021-08-25] MEDS ORDERED: SERT-158 PO (09:52)
[2021-08-25] MEDS ORDERED: GABA-1181 PO (09:52)
[2021-08-25] MEDS ORDERED: OLAN10TA74 PO (09:52)
[2021-08-25 10:17] VITALS: BP 127/82
== END 2021-08-25 10:23 | disposition home or self-care (01) ==
LOC: EMS 07:45
DX: F25.1 Schizoaffective disorder, depressive type (principal); F31.9 Bipolar disorder, unspecified; F03.90 Unspecified dementia, unspecified severity, without behavioral disturbance, psychotic disturbance, mood disturbance, and anxiety; F12.90 Cannabis use, unspecified, uncomplicated; F15.90 Other stimulant use, unspecified, uncomplicated; Z90.49 Acquired absence of other specified parts of digestive tract; Z59.00 Homelessness unspecified; Z20.822 Contact with and (suspected) exposure to COVID-19
CPT/HCPCS: 99284; 87426; 80053; 85025; 36415; G0480

== ENCOUNTER 2022-06-22 10:33 | Inpatient (IN) | payer MEDICAID, OTHER ==
[~2022-06-22] VITALS: Ht 172.7 cm; Wt 67.5 kg
[~2022-06-22 10:33] MED LIST changes: +GABA-1181 PO; +OLAN10TA74 PO; -OMEG-108 PO; +OMEG-135 PO; +SERT-158 PO
[2022-06-22 11:51] LABS: BASOPHILS % (AUTO) 0.9 % (0.0-2.0); EOSINOPHILS % (AUTO) 2.7 % (1.0-6.0); HEMATOCRIT 42.4 % (41-53); HEMOGLOBIN 14.2 g/dL (13.5-17.5); LYMPHOCYTES # (AUTO) 1.2 K/uL (1.0-4.8); LYMPHOCYTES % (AUTO) 19.5 % (22.0-44.0); MEAN CORPUSCULAR HGB CONC 33.6 G/dL (31.0-37.0); MEAN CORPUSCULAR VOLUME 92 fL (80-100); MONOCYTES # (AUTO) 0.6 K/uL (0.1-1.0); MONOCYTES % (AUTO) 9.5 % (2.0-9.0); NEUTROPHILS # (AUTO) 4.3 K/uL (1.8-7.7); NEUTROPHILS % (AUTO) 67.4 % (40.0-70.0); PLATELET COUNT (AUTO) 309 K/uL (150-450); RED BLOOD CELL COUNT(AUTO) 4.59 MIL/uL (4.50-5.90); RED CELL DISTRIBUTION WIDTH 14.9 % (11.5-14.5)
[2022-06-22 12:02] LABS: ANION GAP 9 mmol/L (8-16); CALCIUM, TOTAL 8.7 mg/dL (8.8-10.5); CARBON DIOXIDE 24 mmol/L (22-29); CHLORIDE 106 mmol/L (98-107); CREATININE 0.88 mg/dL (0.60-1.30); GLOMERULAR FILTR. RATE CALC > 60 mL/min (>60); GLUCOSE,RANDOM 93 mg/dL (70-110); SODIUM SERUM 139 mmol/L (136-145)
[2022-06-22 12:07] LABS: ALANINE AMINOTRANSFERASE 14 U/L (12-78); ALBUMIN 3.5 g/dL (3.4-5.0); ALKALINE PHOSPHATASE 92 U/L (46-116); ASPARTATE AMINOTRANSFERASE 21 U/L (15-37); BILIRUBIN,TOTAL 0.4 mg/dL (0.1-1.0); TOTAL PROTEIN, SERUM 7.6 g/dL (6.4-8.2)
[2022-06-22] MEDS ORDERED: OLANZapine 5 MG RAPDIS TABLET PO ONE (18:30)
[2022-06-22] MEDS ORDERED: HALOPERIDOL 5 MG TABLET PO PRN (18:30)
[2022-06-22] MEDS ORDERED: LORazepam 1 MG TABLET PO ONE (18:30)
[2022-06-22 19:20] LABS: COVID AG,FIA SOURCE NASAL SWAB
[2022-06-23 04:22] LABS: AMPHET/METH SCREEN,URINE POSITIVE (NEGATIVE); BARBITURATE SCREEN, URINE NEGATIVE (NEGATIVE); BENZODIAZEPINES SCREEN,URINE NEGATIVE (NEGATIVE); CANNABINOID SCREEN,URINE NEGATIVE (NEGATIVE); COCAINE SCREEN,URINE NEGATIVE (NEGATIVE); METHADONE SCREEN, URINE NEGATIVE (NEGATIVE); OPIATE SCREEN,URINE NEGATIVE (NEGATIVE); PHENCYCLIDINE SCREEN,URINE NEGATIVE (NEGATIVE)
[2022-06-23] MEDS ORDERED: NICOTINE 14 MG/24 HOUR PATCH TD PRN (06:45)
[2022-06-23] MEDS ORDERED: PETROLATUM,WHITE 28 GM JELLY TP PRN (06:45)
[2022-06-23] MEDS ORDERED: ALBUTEROL SULFATE HFA 90 MCG/PUFF 8 GM INHALER IH PRN (06:45)
[2022-06-23] MEDS ORDERED: ONDANSETRON HCL 4 MG TABLET PO PRN (06:45)
[2022-06-23] MEDS ORDERED: GuaiFENesin/D-METHORPHAN [SUGAR-FREE] 200-20MG/10 ML SYRUP UDCUP PO PRN (06:45)
[2022-06-23] MEDS ORDERED: CloNIDine HCL 0.1 MG TABLET PO PRN (06:45)
[2022-06-23] MEDS ORDERED: DOCUSATE SODIUM 100 MG CAPSULE PO PRN (06:45)
[2022-06-23] MEDS ORDERED: MAG HYDROX/AL HYDROX/SIMETH ES 30 ML SUSPENSION UDCUP PO PRN (06:45)
[2022-06-23] MEDS ORDERED: LOPERAMIDE HCL 2 MG CAPSULE PO PRN (06:45)
[2022-06-23] MEDS ORDERED: ACETAMINOPHEN 325 MG TABLET PO PRN (06:45)
[2022-06-23] MEDS ORDERED: MAGNESIUM HYDROXIDE SUSPENSION 30 ML UDCUP PO PRN (06:45)
[2022-06-23] MEDS ORDERED: IBUPROFEN 400 MG TABLET PO PRN (06:45)
[2022-06-23 08:10] VITALS: BP 115/72
[2022-06-23] MEDS: LEVOFLOXACIN 500 MG TABLET PO SCH (11:22)
[2022-06-23 12:09] VITALS: BP 115/76
[2022-06-23] MEDS: SERTRALINE HCL 50 MG TABLET PO SCH (12:56)
[2022-06-23 16:15] VITALS: BP 102/68
[2022-06-23] MEDS: OLANZapine 10 MG TABLET PO SCH (20:25)
[2022-06-23 20:37] VITALS: BP 120/79
[2022-06-23 20:46] VITALS: BP 120/79
[2022-06-24 08:30] VITALS: BP 103/72
[2022-06-24] MEDS: LEVOFLOXACIN 500 MG TABLET PO SCH (10:00)
[2022-06-24] MEDS: SERTRALINE HCL 50 MG TABLET PO SCH (10:00)
[2022-06-24 17:50] VITALS: BP 115/76
[2022-06-24] MEDS: OLANZapine 10 MG TABLET PO SCH (20:26)
[2022-06-25] MEDS: LEVOFLOXACIN 500 MG TABLET PO SCH (08:30)
[2022-06-25] MEDS: SERTRALINE HCL 50 MG TABLET PO SCH (08:31)
[2022-06-25 20:27] VITALS: BP 118/80
[2022-06-25] MEDS: OLANZapine 10 MG TABLET PO SCH (20:50)
[2022-06-26] MEDS: SERTRALINE HCL 50 MG TABLET PO SCH (08:28)
[2022-06-26] MEDS: LEVOFLOXACIN 500 MG TABLET PO SCH (08:28)
[2022-06-26 10:06] VITALS: BP 126/72
[2022-06-26 20:28] VITALS: BP 120/82
[2022-06-26] MEDS: OLANZapine 10 MG TABLET PO SCH (20:52)
[2022-06-26] MEDS: ZOLPIDEM TARTRATE 10 MG TABLET PO PRN (21:07)
[2022-06-27] MEDS: SERTRALINE HCL 50 MG TABLET PO SCH (08:30)
[2022-06-27] MEDS: LEVOFLOXACIN 500 MG TABLET PO SCH (08:30)
[2022-06-27 08:58] VITALS: BP 130/84
[2022-06-27 16:11] VITALS: BP 111/72
[2022-06-27] MEDS: LORazepam 2 MG TABLET PO PRN (17:13)
[2022-06-27] MEDS: OLANZapine 10 MG TABLET PO SCH (20:37)
[2022-06-27] MEDS: ZOLPIDEM TARTRATE 10 MG TABLET PO PRN (21:12)
[2022-06-28 08:01] LABS: COVID AG,FIA SOURCE NASAL SWAB
[2022-06-28] MEDS: LEVOFLOXACIN 500 MG TABLET PO SCH (08:26)
[2022-06-28] MEDS: SERTRALINE HCL 50 MG TABLET PO SCH (08:26)
[2022-06-28 10:40] VITALS: BP 125/65
[2022-06-28] MEDS: LORazepam 2 MG TABLET PO PRN (18:57)
[2022-06-28] MEDS: OLANZapine 10 MG TABLET PO SCH (20:11)
[2022-06-29] MEDS: LEVOFLOXACIN 500 MG TABLET PO SCH (08:01)
[2022-06-29] MEDS: SERTRALINE HCL 50 MG TABLET PO SCH (08:01)
[2022-06-29 08:11] VITALS: BP 120/69
[2022-06-29] MEDS: LORazepam 2 MG TABLET PO PRN (10:57)
[2022-06-29 16:14] VITALS: BP 100/55
== END 2022-06-29 16:30 | disposition home or self-care (01) | DRG 750 ==
LOC: EMS 10:35 → 3EC 06-23 00:02
PROVIDERS: ADMIT Psychiatry & Neurology Psychiatry; ATTEND Psychiatry & Neurology Psychiatry
DX: F20.0 Paranoid schizophrenia (principal); R45.851 Suicidal ideations; F03.90 Unspecified dementia, unspecified severity, without behavioral disturbance, psychotic disturbance, mood disturbance, and anxiety; L03.115 Cellulitis of right lower limb; Z20.822 Contact with and (suspected) exposure to COVID-19; F31.9 Bipolar disorder, unspecified; G47.00 Insomnia, unspecified; L03.116 Cellulitis of left lower limb; F19.10 Other psychoactive substance abuse, uncomplicated; Z90.49 Acquired absence of other specified parts of digestive tract; Z79.899 Other long term (current) drug therapy; Z91.148 Patient's other noncompliance with medication regimen for other reason
CPT/HCPCS: 80053; 80307; 85025; 99285; G0480

== ENCOUNTER 2022-10-08 11:47 | Inpatient (IN) | payer MEDICAID, OTHER ==
[~2022-10-08] VITALS: Ht 172.7 cm; Wt 64.9 kg
[2022-10-08 14:23] LABS: BASOPHILS % (AUTO) 1.7 % (0.0-2.0); EOSINOPHILS % (AUTO) 1.6 % (1.0-6.0); HEMATOCRIT 45.3 % (41-53); HEMOGLOBIN 15.3 g/dL (13.5-17.5); LYMPHOCYTES # (AUTO) 1.8 K/uL (1.0-4.8); LYMPHOCYTES % (AUTO) 29.6 % (22.0-44.0); MEAN CORPUSCULAR HEMOGLOBIN 31.6 pg (26.0-34.0); MEAN CORPUSCULAR HGB CONC 33.9 G/dL (31.0-37.0); MEAN CORPUSCULAR VOLUME 93 fL (80-100); MONOCYTES # (AUTO) 0.5 K/uL (0.1-1.0); MONOCYTES % (AUTO) 7.6 % (2.0-9.0); NEUTROPHILS # (AUTO) 3.5 K/uL (1.8-7.7); NEUTROPHILS % (AUTO) 59.5 % (40.0-70.0); PLATELET COUNT (AUTO) 352 K/uL (150-450); RED BLOOD CELL COUNT(AUTO) 4.86 MIL/uL (4.50-5.90); RED CELL DISTRIBUTION WIDTH 14.8 % (11.5-14.5); WHITE BLOOD COUNT (AUTO) 5.9 K/uL (4.5-11.0)
[2022-10-08 14:33] LABS: ANION GAP 8 mmol/L (8-16); CALCIUM, TOTAL 8.9 mg/dL (8.8-10.5); CARBON DIOXIDE 27 mmol/L (22-29); CHLORIDE 100 mmol/L (98-107); CREATININE 1.02 mg/dL (0.60-1.30); GLOMERULAR FILTR. RATE CALC > 60 mL/min (>60); GLUCOSE,RANDOM 87 mg/dL (70-110); POTASSIUM 3.6 mmol/L (3.5-5.1); SODIUM SERUM 135 mmol/L (136-145); UREA NITROGEN, BLOOD 20 mg/dL (7-18)
[2022-10-08 14:38] LABS: ALCOHOL, BLOOD (SERUM) < 3 mg/dL (0-10)
[2022-10-08 14:39] LABS: ALANINE AMINOTRANSFERASE 12 U/L (12-78); ALBUMIN 3.5 g/dL (3.4-5.0); ALKALINE PHOSPHATASE 79 U/L (46-116); ASPARTATE AMINOTRANSFERASE 17 U/L (15-37); BILIRUBIN,TOTAL 0.5 mg/dL (0.1-1.0); TOTAL PROTEIN, SERUM 7.4 g/dL (6.4-8.2)
[2022-10-08] MEDS ORDERED: ZOLPIDEM TARTRATE 10 MG TABLET PO PRN (16:45)
[2022-10-08] MEDS ORDERED: PROMETHAZINE HCL 25 MG TABLET PO PRN (16:45)
[2022-10-08] MEDS ORDERED: LOPERAMIDE HCL 2 MG CAPSULE PO PRN (16:45)
[2022-10-08] MEDS ORDERED: HydrOXYzine PAMOATE 50 MG CAPSULE PO PRN (16:45)
[2022-10-08] MEDS ORDERED: OLANZapine 5 MG RAPDIS TABLET PO PRN (16:45)
[2022-10-08] MEDS ORDERED: MAGNESIUM HYDROXIDE SUSPENSION 30 ML UDCUP PO PRN (16:45)
[2022-10-08] MEDS ORDERED: ACETAMINOPHEN 325 MG TABLET PO PRN (16:45)
[2022-10-08] MEDS ORDERED: TUBERCULIN, PURIFIED PROTEIN DERIVATIVE 5 TU/0.1 ML SYRINGE ID ONE (16:45)
[2022-10-08] MEDS ORDERED: GuaiFENesin/D-METHORPHAN [SUGAR-FREE] 200-20MG/10 ML SYRUP UDCUP PO PRN (16:45)
[2022-10-08] MEDS ORDERED: MAG HYDROX/AL HYDROX/SIMETH ES 30 ML SUSPENSION UDCUP PO PRN (16:45)
[2022-10-08] MEDS ORDERED: OLANZapine 5 MG RAPDIS TABLET PO SCH (21:00)
[2022-10-08] MEDS: THIAMINE 100 MG TABLET PO SCH (22:25)
[2022-10-09 06:24] LABS: COVID AG,FIA SOURCE NASAL SWAB
[2022-10-09 06:41] LABS: SARS-COV2 (COVID) ANTIGEN,FIA Negative (Negative)
[2022-10-09 07:45] LABS: PH,URINE DRUG SCREEN 6.5 (5.0-8.0)
[2022-10-09 07:54] LABS: ALCOHOL, URINE DRUG SCREEN NEGATIVE (NEGATIVE); AMPHET/METH SCREEN,URINE POSITIVE (NEGATIVE); BARBITURATE SCREEN, URINE NEGATIVE (NEGATIVE); BENZODIAZEPINES SCREEN,URINE NEGATIVE (NEGATIVE); CANNABINOID SCREEN,URINE NEGATIVE (NEGATIVE); COCAINE SCREEN,URINE NEGATIVE (NEGATIVE); METHADONE SCREEN, URINE NEGATIVE (NEGATIVE); OPIATE SCREEN,URINE NEGATIVE (NEGATIVE); PHENCYCLIDINE SCREEN,URINE NEGATIVE (NEGATIVE)
[2022-10-09 07:55] LABS: CHOL/HDL RATIO 2.2 (4.2-7.3); FREE T4 (FREE THYROXINE) 1.12 ng/dL (0.76-1.46); THYROID STIMULATING HORMONE 1.61 uIU/mL (0.36-3.74)
[2022-10-09 08:09] LABS: HEMOGLOBIN A1C 5.5 % (3.8-5.6)
[2022-10-09] MEDS: THIAMINE 100 MG TABLET PO SCH ×2 (09:00→16:19)
[2022-10-09] MEDS: BuPROPion HCL XL 150 MG ER TABLET PO SCH (09:00)
[2022-10-09] MEDS: MULTIVITAMINS WITH MINERALS, THERAPEUTIC TABLET PO SCH (09:00)
[2022-10-09] MEDS: FOLIC ACID 1 MG TABLET PO SCH (09:00)
[2022-10-09] MEDS: NALTREXONE HCL 50 MG TABLET PO SCH (09:00)
[2022-10-09] MEDS: OMEGA-3/DHA/EPA/FISH OIL 1,000 MG CAPSULE PO SCH (09:00)
[2022-10-09 16:01] VITALS: BP 109/86; PULSE 76; RESP 18; TEMP 98; O2SAT 98
[2022-10-09 20:07] VITALS: BP 112/64; PULSE 89; RESP 19; TEMP 98.4; O2SAT 96
[2022-10-09] MEDS: MELATONIN 5 MG TABLET PO SCH (20:35)
[2022-10-10 08:12] VITALS: BP 115/65; PULSE 60; RESP 17; TEMP 97.7; O2SAT 95
[2022-10-10] MEDS: OMEGA-3/DHA/EPA/FISH OIL 1,000 MG CAPSULE PO SCH (09:03)
[2022-10-10] MEDS: BuPROPion HCL XL 150 MG ER TABLET PO SCH (09:04)
[2022-10-10] MEDS: MULTIVITAMINS WITH MINERALS, THERAPEUTIC TABLET PO SCH (09:04)
[2022-10-10] MEDS: THIAMINE 100 MG TABLET PO SCH ×2 (09:04→16:34)
[2022-10-10] MEDS: FOLIC ACID 1 MG TABLET PO SCH (09:04)
[2022-10-10] MEDS: NALTREXONE HCL 50 MG TABLET PO SCH (09:04)
[2022-10-10 20:30] VITALS: BP 110/64; PULSE 67; RESP 17; TEMP 98.2; O2SAT 96
[2022-10-10] MEDS: PRAZOSIN HCL 1 MG CAPSULE PO SCH (20:38)
[2022-10-10] MEDS: MELATONIN 5 MG TABLET PO SCH (20:39)
[2022-10-10] MEDS: OLANZapine 10 MG RAPDIS TABLET PO SCH (20:39)
[2022-10-11 08:19] VITALS: BP 114/59; PULSE 62; RESP 18; TEMP 98; O2SAT 96
[2022-10-11] MEDS ORDERED: PALIPERIDONE PALMITATE 234 MG/1.5 ML SYRINGE IM ONE (09:00)
[2022-10-11] MEDS: MULTIVITAMINS WITH MINERALS, THERAPEUTIC TABLET PO SCH (09:07)
[2022-10-11] MEDS: OMEGA-3/DHA/EPA/FISH OIL 1,000 MG CAPSULE PO SCH (09:07)
[2022-10-11] MEDS: FOLIC ACID 1 MG TABLET PO SCH (09:08)
[2022-10-11] MEDS: BuPROPion HCL XL 150 MG ER TABLET PO SCH (09:08)
[2022-10-11] MEDS: THIAMINE 100 MG TABLET PO SCH ×2 (09:08→17:21)
[2022-10-11] MEDS: NALTREXONE HCL 50 MG TABLET PO SCH (09:08)
[2022-10-11] MEDS: MELATONIN 5 MG TABLET PO SCH (20:33)
[2022-10-11] MEDS: OLANZapine 10 MG RAPDIS TABLET PO SCH (20:33)
[2022-10-11] MEDS: PRAZOSIN HCL 1 MG CAPSULE PO SCH (20:33)
[2022-10-11] MEDS: DIVALPROEX SODIUM 250 MG ER TABLET PO SCH (20:34)
[2022-10-11 20:37] VITALS: BP 114/70; PULSE 72; RESP 17; TEMP 97.9; O2SAT 98
[2022-10-12] MEDS: MULTIVITAMINS WITH MINERALS, THERAPEUTIC TABLET PO SCH (08:11)
[2022-10-12] MEDS: OMEGA-3/DHA/EPA/FISH OIL 1,000 MG CAPSULE PO SCH (08:11)
[2022-10-12] MEDS: NALTREXONE HCL 50 MG TABLET PO SCH (08:12)
[2022-10-12] MEDS: BuPROPion HCL XL 150 MG ER TABLET PO SCH (08:12)
[2022-10-12] MEDS: FOLIC ACID 1 MG TABLET PO SCH (08:12)
[2022-10-12] MEDS: THIAMINE 100 MG TABLET PO SCH ×2 (08:12→17:38)
[2022-10-12] MEDS: LORazepam 2 MG TABLET PO PRN (13:04)
[2022-10-12 17:44] VITALS: BP 110/70; PULSE 80; RESP 17; TEMP 98.2; O2SAT 98
[2022-10-12] MEDS: OLANZapine 10 MG RAPDIS TABLET PO SCH (20:13)
[2022-10-12] MEDS: MELATONIN 5 MG TABLET PO SCH (20:13)
[2022-10-12] MEDS: DIVALPROEX SODIUM 250 MG ER TABLET PO SCH (20:14)
[2022-10-12] MEDS: PRAZOSIN HCL 1 MG CAPSULE PO SCH (20:14)
[2022-10-12 20:25] VITALS: BP 100/60; PULSE 84; RESP 18; TEMP 97.6; O2SAT 98
[2022-10-13] MEDS: FOLIC ACID 1 MG TABLET PO SCH (09:06)
[2022-10-13] MEDS: MULTIVITAMINS WITH MINERALS, THERAPEUTIC TABLET PO SCH (09:06)
[2022-10-13] MEDS: BuPROPion HCL XL 150 MG ER TABLET PO SCH (09:06)
[2022-10-13] MEDS: THIAMINE 100 MG TABLET PO SCH ×2 (09:06→17:26)
[2022-10-13] MEDS: NALTREXONE HCL 50 MG TABLET PO SCH (09:06)
[2022-10-13] MEDS: OMEGA-3/DHA/EPA/FISH OIL 1,000 MG CAPSULE PO SCH (09:07)
[2022-10-13 09:11] VITALS: BP 104/72; PULSE 79; RESP 17; TEMP 97.5; O2SAT 98
[2022-10-13] MEDS: OLANZapine 10 MG RAPDIS TABLET PO SCH (20:27)
[2022-10-13] MEDS: MELATONIN 5 MG TABLET PO SCH (20:28)
[2022-10-13] MEDS: DIVALPROEX SODIUM 250 MG ER TABLET PO SCH (20:28)
[2022-10-13] MEDS: PRAZOSIN HCL 1 MG CAPSULE PO SCH (20:28)
[2022-10-13 20:32] VITALS: BP 117/78; PULSE 103; RESP 17; TEMP 97.6; O2SAT 97
[2022-10-14 08:19] VITALS: BP 104/69; PULSE 97; RESP 19; TEMP 98.6; O2SAT 97
[2022-10-14] MEDS: MULTIVITAMINS WITH MINERALS, THERAPEUTIC TABLET PO SCH (09:26)
[2022-10-14] MEDS: NALTREXONE HCL 50 MG TABLET PO SCH (09:26)
[2022-10-14] MEDS: OMEGA-3/DHA/EPA/FISH OIL 1,000 MG CAPSULE PO SCH (09:26)
[2022-10-14] MEDS: THIAMINE 100 MG TABLET PO SCH ×2 (09:27→17:04)
[2022-10-14] MEDS: FOLIC ACID 1 MG TABLET PO SCH (09:27)
[2022-10-14] MEDS: BuPROPion HCL XL 150 MG ER TABLET PO SCH (09:27)
[2022-10-14 20:20] VITALS: BP 119/75; PULSE 88; RESP 18; TEMP 98.1; O2SAT 98
[2022-10-14] MEDS: PRAZOSIN HCL 1 MG CAPSULE PO SCH (21:10)
[2022-10-14] MEDS: DIVALPROEX SODIUM 250 MG ER TABLET PO SCH (21:11)
[2022-10-14] MEDS: MELATONIN 5 MG TABLET PO SCH (21:11)
[2022-10-15] MEDS: OLANZapine 10 MG RAPDIS TABLET PO SCH ×2 (01:00→20:18)
[2022-10-15 08:20] VITALS: BP 108/63; PULSE 68; RESP 18; TEMP 96.9; O2SAT 96
[2022-10-15] MEDS: OMEGA-3/DHA/EPA/FISH OIL 1,000 MG CAPSULE PO SCH (08:56)
[2022-10-15] MEDS: NALTREXONE HCL 50 MG TABLET PO SCH (08:56)
[2022-10-15] MEDS: THIAMINE 100 MG TABLET PO SCH ×2 (08:56→16:57)
[2022-10-15] MEDS: BuPROPion HCL XL 150 MG ER TABLET PO SCH (08:56)
[2022-10-15] MEDS: FOLIC ACID 1 MG TABLET PO SCH (08:56)
[2022-10-15] MEDS: MULTIVITAMINS WITH MINERALS, THERAPEUTIC TABLET PO SCH (08:56)
[2022-10-15] MEDS ORDERED: PALIPERIDONE PALMITATE 156 MG/ML SYRINGE IM ONE (09:00)
[2022-10-15 20:02] VITALS: BP 102/59; PULSE 70; RESP 18; TEMP 97.8; O2SAT 94
[2022-10-15] MEDS: DIVALPROEX SODIUM 250 MG ER TABLET PO SCH (20:18)
[2022-10-15] MEDS: MELATONIN 5 MG TABLET PO SCH (20:18)
[2022-10-15] MEDS: PRAZOSIN HCL 1 MG CAPSULE PO SCH (20:18)
[2022-10-15 20:25] VITALS: BP 109/63; PULSE 83; RESP 18
[2022-10-16 08:43] VITALS: BP 118/68; PULSE 66; RESP 15; TEMP 97.7; O2SAT 96
[2022-10-16] MEDS: FOLIC ACID 1 MG TABLET PO SCH (08:56)
[2022-10-16] MEDS: BuPROPion HCL XL 150 MG ER TABLET PO SCH (08:56)
[2022-10-16] MEDS: THIAMINE 100 MG TABLET PO SCH ×2 (08:56→16:43)
[2022-10-16] MEDS: MULTIVITAMINS WITH MINERALS, THERAPEUTIC TABLET PO SCH (08:56)
[2022-10-16] MEDS: NALTREXONE HCL 50 MG TABLET PO SCH (08:56)
[2022-10-16] MEDS: OMEGA-3/DHA/EPA/FISH OIL 1,000 MG CAPSULE PO SCH (08:56)
[2022-10-16 20:02] VITALS: BP 101/72; PULSE 84; RESP 20; TEMP 97.6; O2SAT 98
[2022-10-16] MEDS: PRAZOSIN HCL 1 MG CAPSULE PO SCH (20:19)
[2022-10-16] MEDS: MELATONIN 5 MG TABLET PO SCH (20:20)
[2022-10-16] MEDS: OLANZapine 10 MG RAPDIS TABLET PO SCH (20:20)
[2022-10-16] MEDS: DIVALPROEX SODIUM 250 MG ER TABLET PO SCH (20:20)
[2022-10-17 08:27] VITALS: BP 101/64; PULSE 71; RESP 18; TEMP 97.7; O2SAT 95
[2022-10-17] MEDS: MULTIVITAMINS WITH MINERALS, THERAPEUTIC TABLET PO SCH (09:04)
[2022-10-17] MEDS: NALTREXONE HCL 50 MG TABLET PO SCH (09:04)
[2022-10-17] MEDS: BuPROPion HCL XL 150 MG ER TABLET PO SCH (09:04)
[2022-10-17] MEDS: THIAMINE 100 MG TABLET PO SCH (09:04)
[2022-10-17] MEDS: OMEGA-3/DHA/EPA/FISH OIL 1,000 MG CAPSULE PO SCH (09:04)
[2022-10-17] MEDS: FOLIC ACID 1 MG TABLET PO SCH (09:04)
[2022-10-17 20:02] VITALS: BP 101/62; PULSE 66; RESP 18; TEMP 97.6; O2SAT 97
[2022-10-17] MEDS: PRAZOSIN HCL 1 MG CAPSULE PO SCH (20:35)
[2022-10-17] MEDS: MELATONIN 5 MG TABLET PO SCH (20:35)
[2022-10-17] MEDS: OLANZapine 10 MG RAPDIS TABLET PO SCH (20:35)
[2022-10-17] MEDS: DIVALPROEX SODIUM 250 MG ER TABLET PO SCH (20:35)
[2022-10-17 20:36] VITALS: BP 118/68; PULSE 83; RESP 18
[2022-10-18 08:15] VITALS: BP 100/61; PULSE 67; RESP 19; TEMP 97.6; O2SAT 97
[2022-10-18] MEDS: MULTIVITAMINS WITH MINERALS, THERAPEUTIC TABLET PO SCH (09:23)
[2022-10-18] MEDS: NALTREXONE HCL 50 MG TABLET PO SCH (09:23)
[2022-10-18] MEDS: FOLIC ACID 1 MG TABLET PO SCH (09:23)
[2022-10-18] MEDS: BuPROPion HCL XL 150 MG ER TABLET PO SCH (09:23)
[2022-10-18] MEDS: OMEGA-3/DHA/EPA/FISH OIL 1,000 MG CAPSULE PO SCH (09:24)
[2022-10-18 20:19] VITALS: BP 101/67; PULSE 79; RESP 18; TEMP 99.3; O2SAT 82
[2022-10-18] MEDS: MELATONIN 5 MG TABLET PO SCH (20:49)
[2022-10-18] MEDS: PRAZOSIN HCL 1 MG CAPSULE PO SCH (20:49)
[2022-10-18] MEDS: DIVALPROEX SODIUM 250 MG ER TABLET PO SCH (20:49)
[2022-10-18] MEDS: OLANZapine 10 MG RAPDIS TABLET PO SCH (20:49)
[2022-10-19 08:15] VITALS: BP 105/59; PULSE 88; RESP 18; TEMP 97.5; O2SAT 97
[2022-10-19] MEDS: BuPROPion HCL XL 150 MG ER TABLET PO SCH (09:01)
[2022-10-19] MEDS: NALTREXONE HCL 50 MG TABLET PO SCH (09:01)
[2022-10-19] MEDS: OMEGA-3/DHA/EPA/FISH OIL 1,000 MG CAPSULE PO SCH (09:01)
[2022-10-19] MEDS: MULTIVITAMINS WITH MINERALS, THERAPEUTIC TABLET PO SCH (09:01)
[2022-10-19 20:05] VITALS: BP 128/75; PULSE 90; RESP 18; TEMP 97.9; O2SAT 97
[2022-10-19 20:12] VITALS: BP 106/67; PULSE 70; RESP 18; TEMP 98.5; O2SAT 99
[2022-10-19] MEDS: DIVALPROEX SODIUM 250 MG ER TABLET PO SCH (20:38)
[2022-10-19] MEDS: MELATONIN 5 MG TABLET PO SCH (20:39)
[2022-10-19] MEDS: OLANZapine 10 MG RAPDIS TABLET PO SCH (20:41)
[2022-10-19] MEDS: PRAZOSIN HCL 1 MG CAPSULE PO SCH (20:41)
[2022-10-20 08:07] VITALS: BP 113/65; PULSE 73; RESP 20; TEMP 98.4; O2SAT 99
[2022-10-20] MEDS: OMEGA-3/DHA/EPA/FISH OIL 1,000 MG CAPSULE PO SCH (08:14)
[2022-10-20] MEDS: NALTREXONE HCL 50 MG TABLET PO SCH (08:14)
[2022-10-20] MEDS: BuPROPion HCL XL 150 MG ER TABLET PO SCH (08:14)
[2022-10-20] MEDS: MULTIVITAMINS WITH MINERALS, THERAPEUTIC TABLET PO SCH (08:14)
[2022-10-20] MEDS: LORazepam 2 MG TABLET PO PRN (13:32)
[2022-10-20] MEDS: OLANZapine 10 MG RAPDIS TABLET PO SCH (20:12)
[2022-10-20] MEDS: MELATONIN 5 MG TABLET PO SCH (20:13)
[2022-10-20] MEDS: PRAZOSIN HCL 1 MG CAPSULE PO SCH (20:13)
[2022-10-20] MEDS: DIVALPROEX SODIUM 250 MG ER TABLET PO SCH (20:13)
[2022-10-20 20:27] VITALS: BP 101/62; PULSE 78; RESP 18; TEMP 98.1; O2SAT 98
[2022-10-21 08:12] VITALS: BP 106/60; PULSE 69; RESP 19; TEMP 98; O2SAT 100
[2022-10-21] MEDS: NALTREXONE HCL 50 MG TABLET PO SCH (09:19)
[2022-10-21] MEDS: BuPROPion HCL XL 150 MG ER TABLET PO SCH (09:19)
[2022-10-21] MEDS: MULTIVITAMINS WITH MINERALS, THERAPEUTIC TABLET PO SCH (09:19)
[2022-10-21] MEDS: OMEGA-3/DHA/EPA/FISH OIL 1,000 MG CAPSULE PO SCH (09:19)
[2022-10-21] MEDS: PRAZOSIN HCL 1 MG CAPSULE PO SCH (20:22)
[2022-10-21] MEDS: OLANZapine 10 MG RAPDIS TABLET PO SCH (20:22)
[2022-10-21] MEDS: MELATONIN 5 MG TABLET PO SCH (20:22)
[2022-10-21] MEDS: DIVALPROEX SODIUM 250 MG ER TABLET PO SCH (20:22)
[2022-10-21 20:23] VITALS: BP 108/66; PULSE 90; RESP 19; TEMP 98; O2SAT 98
[2022-10-22] MEDS: OMEGA-3/DHA/EPA/FISH OIL 1,000 MG CAPSULE PO SCH (08:43)
[2022-10-22] MEDS: BuPROPion HCL XL 150 MG ER TABLET PO SCH (08:44)
[2022-10-22] MEDS: MULTIVITAMINS WITH MINERALS, THERAPEUTIC TABLET PO SCH (08:44)
[2022-10-22] MEDS: NALTREXONE HCL 50 MG TABLET PO SCH (08:44)
[2022-10-22 09:17] VITALS: BP 110/60; PULSE 75; RESP 20; TEMP 96.7; O2SAT 96
[2022-10-22] MEDS ORDERED: DIVA-85 PO (15:47)
[2022-10-22] MEDS ORDERED: PRAZ1 PO (15:47)
[2022-10-22] MEDS ORDERED: OMEG-135 PO (15:47)
[2022-10-22] MEDS ORDERED: NALT50TA PO (15:47)
[2022-10-22] MEDS ORDERED: BUPR-49 PO (15:47)
[2022-10-22] MEDS ORDERED: MELA5TAB40 PO (15:47)
[2022-10-22] MEDS ORDERED: OLAN10TA26 PO (15:47)
[2022-10-22] MEDS: DIVALPROEX SODIUM 250 MG ER TABLET PO SCH (20:17)
[2022-10-22] MEDS: OLANZapine 10 MG RAPDIS TABLET PO SCH (20:17)
[2022-10-22] MEDS: PRAZOSIN HCL 1 MG CAPSULE PO SCH (20:17)
[2022-10-22] MEDS: MELATONIN 5 MG TABLET PO SCH (20:18)
[2022-10-22 20:21] VITALS: BP 113/67; PULSE 79; RESP 17; TEMP 98; O2SAT 98
[2022-10-23 08:15] VITALS: BP 107/87; PULSE 65; RESP 18; TEMP 97.7; O2SAT 97
[2022-10-23] MEDS: OMEGA-3/DHA/EPA/FISH OIL 1,000 MG CAPSULE PO SCH (08:26)
[2022-10-23] MEDS: NALTREXONE HCL 50 MG TABLET PO SCH (08:26)
[2022-10-23] MEDS: MULTIVITAMINS WITH MINERALS, THERAPEUTIC TABLET PO SCH (08:26)
[2022-10-23] MEDS: BuPROPion HCL XL 150 MG ER TABLET PO SCH (08:26)
== END 2022-10-23 10:30 | disposition left against medical advice (07) | DRG 750 ==
LOC: EMS 11:50 → B2S 10-09 11:27
PROVIDERS: ADMIT Psychiatry & Neurology Psychiatry; ATTEND Psychiatry & Neurology Psychiatry
DX: F25.1 Schizoaffective disorder, depressive type (principal); F03.90 Unspecified dementia, unspecified severity, without behavioral disturbance, psychotic disturbance, mood disturbance, and anxiety; Z53.21 Procedure and treatment not carried out due to patient leaving prior to being seen by health care provider; F25.0 Schizoaffective disorder, bipolar type; F10.20 Alcohol dependence, uncomplicated; F19.20 Other psychoactive substance dependence, uncomplicated; F17.200 Nicotine dependence, unspecified, uncomplicated; J44.9 Chronic obstructive pulmonary disease, unspecified; Z91.148 Patient's other noncompliance with medication regimen for other reason
CPT/HCPCS: 80053; 80061; 80164; 80307; 83036; 84439; 84443; 85025; 86592; G0480; Q9967

== ENCOUNTER 2022-11-25 00:27 | Emergency (ER) | payer MEDICAID, OTHER ==
[~2022-11-25] VITALS: Ht 170.2 cm; Wt 64.0 kg
[~2022-11-25 00:27] MED LIST changes: +BUPR-49 PO; +DIVA-85 PO; -GABA-1181 PO; +NALT50TA PO; -OLAN10TA74 PO; +PRAZ1 PO; -SERT-158 PO
[2022-11-25 00:47] VITALS: TEMP 98.2
[2022-11-25] MEDS ORDERED: FAMOTIDINE 20 MG TABLET PO ONE (01:30)
[2022-11-25 01:49] LABS: BASOPHILS % (AUTO) 0.6 % (0.0-2.0); EOSINOPHILS % (AUTO) 1.8 % (1.0-6.0); HEMATOCRIT 40.1 % (41-53); HEMOGLOBIN 13.4 g/dL (13.5-17.5); LYMPHOCYTES % (AUTO) 29.8 % (22.0-44.0); MEAN CORPUSCULAR HEMOGLOBIN 31.5 pg (26.0-34.0); MEAN CORPUSCULAR HGB CONC 33.4 G/dL (31.0-37.0); MEAN CORPUSCULAR VOLUME 94 fL (80-100); MONOCYTES # (AUTO) 0.7 K/uL (0.1-1.0); MONOCYTES % (AUTO) 9.9 % (2.0-9.0); NEUTROPHILS # (AUTO) 3.9 K/uL (1.8-7.7); NEUTROPHILS % (AUTO) 57.9 % (40.0-70.0); PLATELET COUNT (AUTO) 424 K/uL (150-450); RED BLOOD CELL COUNT(AUTO) 4.25 MIL/uL (4.50-5.90); RED CELL DISTRIBUTION WIDTH 14.4 % (11.5-14.5); WHITE BLOOD COUNT (AUTO) 6.8 K/uL (4.5-11.0)
[2022-11-25 01:53] LABS: ANION GAP 7 mmol/L (8-16); CALCIUM, TOTAL 8.4 mg/dL (8.8-10.5); CARBON DIOXIDE 28 mmol/L (22-29); CHLORIDE 103 mmol/L (98-107); CREATININE 1.01 mg/dL (0.60-1.30); GLOMERULAR FILTR. RATE CALC > 60 mL/min (>60); GLUCOSE,RANDOM 84 mg/dL (70-110); POTASSIUM 3.7 mmol/L (3.5-5.1); SODIUM SERUM 138 mmol/L (136-145); UREA NITROGEN, BLOOD 16 mg/dL (7-18)
[2022-11-25 02:00] LABS: ALANINE AMINOTRANSFERASE 16 U/L (12-78); ALBUMIN 2.7 g/dL (3.4-5.0); ALKALINE PHOSPHATASE 84 U/L (46-116); ASPARTATE AMINOTRANSFERASE 17 U/L (15-37); BILIRUBIN,TOTAL 0.1 mg/dL (0.1-1.0); TOTAL PROTEIN, SERUM 6.4 g/dL (6.4-8.2)
[2022-11-25 02:01] LABS: ALCOHOL, BLOOD (SERUM) < 3 mg/dL (0-10)
[2022-11-25 09:00] VITALS: BP 112/58; PULSE 74; RESP 14
== END 2022-11-25 09:25 | disposition home or self-care (01) ==
LOC: EMS 00:29
DX: F20.9 Schizophrenia, unspecified (principal); F41.9 Anxiety disorder, unspecified; F31.9 Bipolar disorder, unspecified; J44.9 Chronic obstructive pulmonary disease, unspecified; F17.210 Nicotine dependence, cigarettes, uncomplicated; F12.90 Cannabis use, unspecified, uncomplicated; F15.90 Other stimulant use, unspecified, uncomplicated; Z98.890 Other specified postprocedural states; Z90.49 Acquired absence of other specified parts of digestive tract; Z76.0 Encounter for issue of repeat prescription
CPT/HCPCS: 99285; 80053; 85025; 36415; G0480